=== PATIENT | female | born 1985 | race Caucasian/White ===

== ENCOUNTER 2021-10-20 15:26 | Emergency (ER) | payer OTHER, SELFPAY ==
[2021-10-20 15:39] VITALS: BP 123/71; PULSE 76; RESP 18; TEMP 37.1; O2SAT 100
--- NOTE | 2021-10-20 15:59 | ED.FEMALEGU ---
HPI - Female Genitourinary General Chief complaint: Urogenital-Female Stated complaint: Uti complaint Source: patient and RN notes reviewed Limitations: no limitations History of Present Illness HPI Narrative: The patient, previously mostly healthy, presents with 2-day history of fever 100[forehead], associated with definite chills and then visible blanquita urinary discoloration. This is worse than prior UTI; No frequency/urgency/dysuria, vomiting/diarrhea, low back pain- so no colic,no abdominal pain, vaginal discharge. Symptoms are mild most noticeable with micturition which is cloudy brown discolored. [id number] urine is remarkable for nitrate positive , 3+ heme, leukocyte negative; patient advised to go to hospital if not improved or to follow-up without fail with PMD for hematuria changes Related Data Home Medications Medication Instructions Recorded Confirmed levonorgestrel [Mirena] 1 insert INTRAUTERINE ONCE 10/20/21 10/20/21 Allergies Allergy/AdvReac Type Severity Reaction Status Date / Time No Known Allergies Allergy Unverified 10/20/21 15:45 Review of Systems Review of Systems: General/Constitutional: No weight loss,fever Eyes: N0: Redness,discharge Ears/Nose/Throat: No: Epistaxis,ear discharge Respiratory: Denies: Hemoptysis Gastrointestinal: No Vomiting, Bleeding-rectal Skin: No Lumps, eruption Neurologic: No Focal Weakness,Sz Hematologic: Denies: Petechiae/Purpura Psychiatric: No: Suicida ideationl All Other Systems: Reviewed and Negative PMFSH Comments At time of signature, agree with nursing past medical, surgical, social and family history. There is no relevant family history pertinent to the presenting complaint Exam Narrative: General Appearance: Well appearing,, Conjunctiva clear Ears: External ear normal Nose: Normal nose Mouth/Throat: Normal appearing, Normal lips, Supple Respiratory: Airway patent, No respiratory distress Cardiovascular: RRR Abdomen: Soft, Non-tender, No massess, no CVAT Musculoskeletal: Full ROM Skin: Warm, Dry Neurological: A&O x3, CN II-X intact Psychiatric: Normal mood, Normal affect Course Vital Signs Vital signs: Vital Signs Temperature 98.7 F 10/20/21 15:39 Pulse Rate 76 10/20/21 15:39 Respiratory Rate 18 10/20/21 15:39 Blood Pressure 123/71 10/20/21 15:39 Pulse Oximetry 100 10/20/21 15:39 Temperature 98.7 F 10/20/21 15:39 Pulse Rate 76 10/20/21 15:39 Respiratory Rate 18 10/20/21 15:39 Blood Pressure 123/71 10/20/21 15:39 Pulse Oximetry 100 10/20/21 15:39 MDM - Female Genitourinary Lab Data Labs: G Bedside Result Negative Reference Range: Negative Urine Glucose Negative Reference Range: Negative Urine Bilirubin Negative Reference Range: Negative Urine Ketone Negative Reference Range: Negative Urine Specific [place] 1.025 Reference Range:1.001-1.035 Urine Blood 3+ Reference Range: Negative * * Urine pH 5.5 Reference Range: 5.0-9.0 Urine Protein 2+ Reference Range: Negative Urine Urobilinogen 0.2 Reference Range: 0.2-1.0 Urine Nitrate Positive Reference Range: Negative Urine Leukocyte Negative
== END 2021-10-20 16:06 | disposition home or self-care (01) ==
PROVIDERS: Emergency Provider Emergency Medicine; PCP Family Medicine
DX: R31.9 Hematuria, unspecified (principal)
CPT/HCPCS: 81003; 81025; 87086; 99213; G0463

== ENCOUNTER → 2021-10-28 14:19 | Outpatient (CLI) | payer OTHER, SELFPAY ==
--- NOTE | ~2021-10-28 | US_ITS ---
EXAMINATION: US renal BI DATE: 10/28/2021 14:33 INDICATION: Microscopic hematuria. TECHNIQUE: Multiple ultrasound grayscale images of the kidneys were obtained. COMPARISON: None. FINDINGS: The right kidney measures 11.7 x 5.4 x 5.6 cm. The left kidney measures 10.4 x 4.7 x 5.4 cm. The kidn eys demonstrate normal parenchymal echogenicity. There is no hydronephrosis. The bladder is normal. IMPRESSION: 1. Normal kidneys. No hydronephrosis. Reviewed, dictated and finalized at location A. EMS DEVELOPMENT CONSULTANT
== END ==
PROVIDERS: PCP Family Medicine; Visit Provider Family Medicine
DX: R31.29 Other microscopic hematuria (principal)
CPT/HCPCS: 76775

== ENCOUNTER 2022-04-27 06:52 | Emergency (ER) | payer OTHER, SELFPAY ==
--- NOTE | ~2022-04-27 | CT_ITS ---
EXAMINATION: CT abdomen pelvis wo con DATE: 04/27/2022 07:39 INDICATION: Left flank pain. Nausea and vomiting. Low back pain. TECHNIQUE: Computed tomography (CT) of the abdomen and pelvis was performed without intravenous contr ast. Automated exposure control and iterative reconstruction technique were employed. The dose-length product was 492.12 mGy-cm. COMPARISON: None FINDINGS: Lung bases are clear. Heart size is normal. No pericardial or pleural effusion. Rim calcified gallsto ne at the neck of the gallbladder which is filled with dependently layering high attenuation sludge. No wall thickening or pericholecystic contour change to suggest acute cholecystitis. Liver, spleen, p ancreas, bilateral adrenal glands and right kidney are normal. 5 mm nonobstructing stone in upper hayder e calyx of the left kidney. 11 x 5 x 6 mm obstructing stone at the left ureteropelvic junction with m ild left hydronephrosis and mild stranding surrounding the ureter pelvic junction. Bowels including t he appendix are normal. T-shaped IUD in expected position within the retroverted uterus. Decompressed bladder and bilateral adnexa are unremarkable. No free intraperitoneal gas or fluid. No pathological ly enlarged abdominal or pelvic lymphadenopathy. Mild lumbar levocurvature. IMPRESSION: 1. Left nephrolithiasis with obstructing 11 x 5 x 6 mm stone at the left ureteral pelvic junction wit h mild left hydronephrosis. 2. Cholelithiasis. 3. IUD in expected position. Reviewed, dictated and finalized at location A. IMPRESSION: 1. Left nephrolithiasis with obstructing 11 x 5 x 6 mm stone at the left ureter al pelvic junction with mild left hydronephrosis. 2. Cholelithiasis. 3. IUD in expected position.
--- NOTE | ~2022-04-27 | XR_ITS ---
EXAMINATION: XR abdomen/kub 1V DATE: 04/27/2022 07:47 INDICATION: Left flank pain. TECHNIQUE: A supine view of the abdomen on 2 radiographs was obtained. COMPARISON: CT abdomen and pelvis 04/27/2022 FINDINGS: There are no dilated loops of bowel. There is an intrauterine device in expected position. There is a 5 mm stone in left kidney upper pole. There is a 6 x 11 mm stone in proximal left ureter. IMPRESSION: 1. 6 x 11 mm stone in proximal left ureter. 2. 5 mm stone in left kidney upper pole. Reviewed, dictated and finalized at location B.
[2022-04-27 06:56] VITALS: BP 128/64; PULSE 62; RESP 16; TEMP 36.7; O2SAT 100
[2022-04-27 07:10] VITALS: BP 128/64; PULSE 59; RESP 17; O2SAT 100
[2022-04-27 07:28] LABS: Basophils Percent Auto 0.3 % (0.2-1.2); Eosinophils Absolute Auto 0.1 K/mm3 (0-0.3); Eosinophils Percent Auto 1.3 % (0-4.4); Hematocrit 41.6 % (37.0-47.0); Hemoglobin 14.3 g/dL (12.0-15.0); Immature Granulocyte Absolute 0.02 K/mm3 (0.00-0.031); Immature Granulocyte Percent A 0.2 % (0-0.5); Lymphocytes Absolute Auto 1.91 K/mm3 (0.9-3.2); Lymphocytes Percent Auto 20.7 % (18.3-44.2); Mean Corpuscular HGB Conc 34.4 g/dl (32-36); Mean Corpuscular Hemoglobin 30.3 pg (26-34); Mean Corpuscular Volume 88.1 fl (80-100); Mean Platelet Volume 11.6 fl (7.4-10.4); Monocytes Absolute Auto 0.5 K/mm3 (0.1-0.6); Monocytes Percent Auto 5.7 % (2.6-8.5); Neutrophils Absolute Auto 6.6 K/mm3 (1.3-6.7); Neutrophils Percent Auto 71.8 % (45.5-73.1); Platelet Count Result 244 k/mm3 (150-375); Red Blood Count 4.72 M/mm3 (4.2-5.4); Red Cell Distribution Width 12.1 % (11.5-14.5); White Blood Count 9.2 K/mm3 (4.5-10.0)
[2022-04-27 07:29] LABS: Add Urine Microscopic? YES; Appearance Urine Cloudy (Clear); Bilirubin Urine 1+ (Negative); Blood Urine 3+ (Negative); Glucose Urine UA Negative (Negative); Ketones Urine Negative (Negative); Leukocyte Esterase Ur Negative LEU/UL (Negative); Nitrate Urine Negative (Negative); Protein Urine 2+ mg/dL (Negative); Specific Grav Ur >= 1.030 (1.001-1.035); Urobilinogen Urine 0.2 mg/dL (<2.0); pH Urine 5.5 (5.0-9.0)
[2022-04-27 07:33] LABS: Color Urine Light Red (Yellow)
[2022-04-27 07:35] LABS: Bacteria Urine Trace /hpf; Mucus Urine Few /lpf; RBC Urine >75 /hpf (0-2); Squamous Epithelial Cell Urine Few /hpf (Few)
--- NOTE | 2022-04-27 07:37 | ED.BACK ---
HPI - Back Pain/Injury General Chief Complaint: Back Pain/Injury Stated Complaint: back pain Time Seen by Provider: 04/27/22 06:59 Source: patient, family, RN notes reviewed and old records reviewed Mode of arrival: ambulatory Limitations: no limitations History of Present Illness HPI Narrative: This is a 37 year old female who presents for evaluation left lower back pain. She woke this morning with sudden onset left flank pain. She states this pain is intermittent, and her pain has currently resolved. She is having associated nausea and vomiting. Her pain does not radiate. She denies fever or chills . She states she has had back pain for 6 month but this pain is different. She denies history of kidney stones or ovarian cyst. She does noted that when she went to restroom, she saw bright red blood when she wipes. She denies seeing blood in toilet. Related Data Home Medications Medication Instructions Recorded Confirmed levonorgestrel 20 mcg/24 hours (7 1 insert intrauterine ONCE 10/20/21 10/20/21 yrs) 52 mg intrauterine device (Mirena) Allergies Allergy/AdvReac Type Severity Reaction Status Date / Time No Known Allergies Allergy Verified 04/27/22 07:06 Review of Systems Review of Systems: All systems reviewed & are unremarkable except as noted in HPI and below Constitutional: Constitutional: Denies chills, Denies fatigue and Denies fever(s) Cardiovascular: Cardiovascular: Denies chest pain and Denies rapid heart rate Respiratory: Respiratory: Denies chest congestion, Denies cough and Denies dyspnea Gastrointestinal: Gastrointestinal: Denies abdominal pain, Denies bloating, Denies constipation, Reports nausea and Reports vomiting Genitourinary: Genitourinary: Reports hematuria, Denies dysuria and Reports flank pain Musculoskeletal: Musculoskeletal: Reports back pain and Denies myalgias Neurologic: Denies focal weakness and Denies numbness PMFSH Past Medical History Medical History Patient denies medical problems Surgical History Surgical History H/O dilation and curettage Social History Social History Smoking status: Never smoker Exam Const: General: alert and diaphoretic Orientation/consciousness: patient oriented x3 Limitations: no limitations HENMT: Head: normal to inspection Face and sinus: normal facial exam Eyes: EOM: EOMs intact bilaterally Chest: Chest palpation & inspection: normal inspection of the chest Resp: Effort & Inspection: normal respiratory effort Auscultation: clear to auscultation bilaterally and breath sounds present Cardio: Rate: regular rate Rhythm: regular rhythm Heart sounds: no murmurs GI: GI Palp: Yes Soft to palpation, No Tenderness to palpation present (GI), No Guarding due to palpation present (GI) and No Rigid due to palpation Auscultation: normal bowel sounds : General: Yes CVA tenderness on the left Back/Spine/Pelvis: Back: CVA tenderness Skin: General skin exam: normal color Rashes: no rashes Wounds: no wounds Neuro: General: patient oriented x3, moves all extremities and CN's II-XI intact bilaterally Cranial nerves: Yes Nystagmus not present Speech: normal speech Extrem: General: normal to inspection Psych: Mental Status: mental status grossly normal Affect: normal affect Course Reevaluation(s) Reevaluation #1: Janeen with urology spoke with patient about options. PAtient wants be discharged home and get set up for outpatient lithotripsy. Date: 04/27/22 Time: 10:00 Vital Signs Vital signs: Vital Signs Temperature 98.0 F 04/27/22 06:56 Pulse Rate 62 04/27/22 06:56 Respiratory Rate 16 04/27/22 06:56 Blood Pressure 128/64 04/27/22 06:56 Pulse Oximetry 100 04/27/22 06:56 Oxygen Delivery Room Air 04/27/22 06:56
[2022-04-27 07:38] LABS: Alanine Aminotransferase 12 U/L (6-35); Albumin Level 4.5 g/dL (3.5-5.1); Alkaline Phosphatase 79 U/L (38-126); Anion Gap 8 mmol/L (8-16); Aspartate Amino Transferase 17 U/L (14-36); Bilirubin,Total 0.4 mg/dL (0.2-1.3); Blood Urea Nitrogen 10 mg/dL (7-17); Calcium 8.5 mg/dL (8.4-10.2); Carbon Dioxide 23 mmol/L (22-30); Chloride 108 mmol/L (98-107); Estimated CRCL calculation 93 ml/min; Estimated Glomerular Filt Rate > 60; Glucose 103 mg/dL (65-110); Lipase 74 U/L (23-300); Potassium 3.8 mmol/L (3.4-5.0); Sodium 139 mmol/L (137-145)
[2022-04-27] MEDS: SODIUM CHLORIDE 0.9% IV 1,000 ML 999 ML IV CONT (07:49)
[2022-04-27] MEDS: HYDROmorphone HCL INJ (*CRX) 1 MG/ML SYR IV PUSH (08:06)
[2022-04-27] MEDS: ONDANSETRON INJ 4 MG/2 ML VIAL IV PUSH (08:06)
[2022-04-27 08:08] VITALS: BP 113/62; PULSE 74; RESP 15; O2SAT 100
--- NOTE | 2022-04-27 09:53 | PC.NURSE ---
Urology at bedside to discuss options/POC.
[2022-04-27 10:16] VITALS: RESP 16
--- NOTE | 2022-04-27 11:44 | WPDURCON ---
Assessment and Plan Assessment and plan (1) Calculus of proximal left ureter: Code(s): N20.1 - Calculus of ureter Status: Acute Assessment and Plan: We discussed placing a stent, however since her pain is well controlled, we discussed doing a LEFT ESWL at our surgery center this week or [facility]. She chose to do the ESWL and declined a stent today since her pain is improved on pain meds. She will be discharged home on pain meds and anti-emetics then scheduled this week for an ESWL. She knows to avoid anti coagulants and NSAID's until her surgery date. (2) Left renal stone: Code(s): N20.0 - Calculus of kidney Status: Acute Urology Consult Note HPI Date Seen: 04/27/22 Time Seen: 09:30 Primary Care Provider: Satya Cortes MD Consult Narrative Reason for consult: Left Renal Stone Narrative: Asha Terry is a 37 year old female who presented to the ER today for worsening left flank pain that began months ago and has been intermittent. She states today she vomitied, but prior to this episode, she denies hematuria, dysuria, frequency or urgency to urinate or pelvic pain. She also denies a history of kidney stones or chronic UTI's. She is afebrile, has a WBC of 9.3 and creatinine of 0.80, Urine culture is pending, but she is relatively asymptomatic of a UTI today. She had some flank pain in 11/04 and her PCP sent her for a HANS which didn't show any stones. Her CT scan in the ER shows a left stone measuring [id number] in the UPJ, and an additional left renal stone measuring 5mm, both are visible on KUB. Her pain is now controlled with pain medications. Review of Systems Respiratory: Respiratory: Reports no additional respiratory complaints Gastrointestinal: Gastrointestinal: Denies abdominal pain, Denies nausea and Reports vomiting Genitourinary: Genitourinary: Denies hematuria, Denies nocturia, Denies dysuria, Denies pelvic pain, Reports flank pain, Denies urinary incontinence, Denies urinary hesitancy and Denies urinary urgency PMF Past Medical History Medical History Patient denies medical problems Surgical History Surgical History H/O dilation and curettage Social History Social History Smoking status: Never smoker Meds Home Medications and Allergies Home Medications Medication Instructions Recorded Confirmed Type cefdinir 300 mg capsule 300 mg PO Q12H #20 caps 10/20/21 Rx levonorgestrel 20 mcg/24 hours (7 1 insert intrauterine ONCE 10/20/21 10/20/21 History yrs) 52 mg intrauterine device (Mirena) ondansetron 4 mg disintegrating 4 mg PO Q6H PRN nausea and 04/27/22 Rx tablet vomiting #10 tabs oxycodone-acetaminophen 5 mg-325 1 tablet PO Q6H PRN pain #10 tabs 04/27/22 Rx mg tablet (Percocet) Allergies Allergy/AdvReac Type Severity Reaction Status Date / Time No Known Allergies Allergy Verified 04/27/22 07:06 Vital Signs Vital Signs - 24 hr 04/27/22 06:56 04/27/22 07:10 04/27/22 08:08 Temperature 98.0 F Pulse Rate 62 59 L 74 Respiratory Rate 16 17 15 Blood Pressure 128/64 128/64 113/62 Pulse Oximetry 100 100 100 Oxygen Delivery Room Air 04/27/22 10:16 Temperature Pulse Rate Respiratory Rate 16 Blood Pressure Pulse Oximetry Oxygen Delivery Exam Resp: Effort & Inspection: normal respiratory effort Cardio: Rate: regular rate GI: GI Palp: Yes Soft to palpation and No Tenderness to palpation present (GI) : Other: Left Flank pain Results Labs CBC & Chem 7: 04/27/22 07:22 04/27/22 07:22 Labs: Short CBC 04/27/22 Range/Units 07:22 WBC 9.2 (4.5-10.0) K/mm3 Hgb 14.3 (12.0-15.0) g/dL Hct 41.6 (37.0-47.0) % Plt Count 244 (150-375) k/mm3 [facility] 04/27/22 07:22 Sodium 139 Potassium 3
== END 2022-04-27 10:17 | disposition home or self-care (01) ==
PROVIDERS: Emergency Provider General Practice; PCP Family Medicine
DX: N20.1 Calculus of ureter (principal)
CPT/HCPCS: 36415; 74018; 74176; 80053; 81001; 81025; 83690; 85025; 87086; 87088; 96361; 96374; 96375; 99284; J1170; J2405; J7030

== ENCOUNTER 2022-04-29 00:31 | Observation (INO) | payer OTHER, SELFPAY ==
[2022-04-29] VITALS (35 sets, daily range): BP systolic 87–120; BP diastolic 47–81; PULSE 45–79; RESP 12–27; TEMP 36.7–37.2; O2SAT 94–100; BMI 29.3
--- NOTE | ~2022-04-29 | XR_ITS ---
XR abdomen/kub 1V DATE: 04/29/2022 01:34 INDICATION: Kidney stone TECHNIQUE: Supine AP views on 04/29/2022 at 0129 hours COMPARISON: 04/29/2022 CT abdomen pelvis 04/27/2022 CT abdomen pelvis FINDINGS: Approximately 4.7 x 12 mm collection of calcified calculi overlying the proximal left urete r at the L2-3 area. r approximate 5 mm calcification overlying the upper pole of the left kidney. An IUD is noted in the pelvic area in expected location. No evidence of bowel obstruction or intraperitoneal free air. The lung bases appear clear. Heart size appears normal. Included skeletal structures are unremarkable. IMPRESSION: Proximal left ureteral Steinstrasse Upper pole left renal calcified calculus Reviewed, dictated and finalized at [facility]. Reviewed, dictated and finalized at location A.
--- NOTE | ~2022-04-29 | CT_ITS ---
EXAMINATION: CT abdomen pelvis wo con DATE: 04/29/2022 02:03 INDICATION: Left flank pain TECHNIQUE: Computed tomography (CT) of the abdomen and pelvis was performed without intravenous contr ast. Automated exposure control and iterative reconstruction technique were employed. Exam dose: 518 .87 mGy-cm total exam DLP. COMPARISON: 04/29/2022 KUB 04/27/2022 CT abdomen pelvis FINDINGS: The lung bases are clear. Normal heart size. No pericardial or pleural effusion. Large peripherally calcified stone is noted in the proximal body of the gallbladder. No bile duct or pancreatic duct dilatation. No hepatic, pancreatic, splenic, and adrenal or renal space-occupying mass lesion is evident on this limited noncontrast examination. There is left nephromegaly and moderately severe left hydronephrosis secondary to multiple stones in the proximal left ureter calculi measuring up to 12 mm vertical dimension, 5.2 mm maximal transverse dimension. There is left perinephric stranding. 5.8 mm upper pole nonobstructing left renal calculus. No right urinary tract calculus or hydronephros is. Normal caliber of the abdominal aorta. No intraperitoneal or retroperitoneal or pelvic mass lesion or adenopathy or ascites. Retroverted uterus with IUD in expected position. No evidence of appendicitis. No bowel obstruction, bowel wall thickening, pneumatosis or intraperiton eal free air. Included skeletal structures are unremarkable. IMPRESSION: Steinstrasse the proximal left ureter with moderately severe left hydroureteronephrosis 5.8 mm upper pole nonobstructing left renal calculus Cholelithiasis Reviewed, dictated and finalized at [facility]. Reviewed, dictated and finalized at location A.
--- NOTE | ~2022-04-29 | XR_ITS ---
EXAMINATION: XR retrograde pyelo w/stent LT DATE: 04/29/2022 15:35 CDT INDICATION: LEFT RETROGRADE . TECHNIQUE: 75 fluoroscopic images of the pelvis and left abdomen were obtained during left retrograde pyelography with stent placement performed by the surgeon. I was not present in the operating room. Fluoroscopy exposure time was 21 seconds. Cumulative dose was 0.36833 mGy2. COMPARISON: CT and xray abdomen 04/29/2022 FINDINGS: IUD, in good position. Redemonstration of the proximal left ureteral stone/stones and nonobstructive left upper pole calculus. Progressive contrast filling of the left collecting system with moderate di lation. Poststenting images demonstrate the proximal aspect of the ureteral stent in the left renal p angelica, likely with the coil viewed in profile and the distal coil over the expected position of the b ladder. IMPRESSION: Fluoroscopic documentation of left retrograde pyelography with stent placement. Reviewed, dictated and finalized at location K.
[2022-04-29] MEDS: SODIUM CHLORIDE 0.9% IV 1,000 ML 999 ML IV CONT (01:20)
[2022-04-29] MEDS: ONDANSETRON INJ 4 MG/2 ML VIAL IV PUSH ×2 (01:20→17:28)
[2022-04-29] MEDS: KETOROLAC 30 MG/ML VIAL (*BKC) IV PUSH ×2 (01:20→17:28)
[2022-04-29 01:27] LABS: Basophils Percent Auto 0.1 % (0.2-1.2); Hematocrit 38.5 % (37.0-47.0); Immature Granulocyte Absolute 0.04 K/mm3 (0.00-0.031); Immature Granulocyte Percent A 0.2 % (0-0.5); Lymphocytes Absolute Auto 0.63 K/mm3 (0.9-3.2); Lymphocytes Percent Auto 3.8 % (18.3-44.2); Mean Corpuscular HGB Conc 33.8 g/dl (32-36); Mean Corpuscular Hemoglobin 30.4 pg (26-34); Mean Platelet Volume 11.7 fl (7.4-10.4); Monocytes Absolute Auto 0.6 K/mm3 (0.1-0.6); Monocytes Percent Auto 3.3 % (2.6-8.5); Neutrophils Absolute Auto 15.5 K/mm3 (1.3-6.7); Neutrophils Percent Auto 92.6 % (45.5-73.1); Platelet Count Result 263 k/mm3 (150-375); Red Blood Count 4.28 M/mm3 (4.2-5.4); Red Cell Distribution Width 12.4 % (11.5-14.5); White Blood Count 16.7 K/mm3 (4.5-10.0)
--- NOTE | 2022-04-29 01:29 | ED.GENADULT ---
HPI - General Adult General Chief complaint: Abdominal Pain Stated complaint: left flank pain Time Seen by Provider: 04/29/22 00:54 History of Present Illness HPI narrative: Patient is a 37-year-old female who presents the ER with lower abdominal pain and flank pain. Patient underwent lithotripsy today. She does not believe she had stent placement. She had an 11 mm stone on left side. She was treated by Dr. Gonzalez. Denies fevers or chills or sweats. She is also having some nausea without vomiting. Home medications not working. No dysuria. Related Data Home Medications Medication Instructions Recorded Confirmed levonorgestrel 20 mcg/24 hours (7 1 insert intrauterine ONCE 10/20/21 10/20/21 yrs) 52 mg intrauterine device (Mirena) Allergies Allergy/AdvReac Type Severity Reaction Status Date / Time No Known Allergies Allergy Verified 04/29/22 00:34 Review of Systems Review of Systems: All systems reviewed & are unremarkable except as noted in HPI and below Constitutional: Constitutional: Denies chills, Denies fatigue and Denies fever(s) ENT: Denies nasal congestion and Denies sore throat Cardiovascular: Cardiovascular: Denies chest pain, Denies radiating jaw, neck or arm pain and Denies slow heart rate Respiratory: Respiratory: Denies cough Gastrointestinal: Gastrointestinal: Reports abdominal pain, Reports nausea and Reports vomiting Genitourinary: Genitourinary: Denies hematuria, Denies nocturia, Denies dysuria and Reports flank pain PMFSH Past Medical History Medical History (Updated 04/29/22 @ 04:15 by Milton Diallo MD) Kidney stones Surgical History Surgical History (Updated 04/29/22 @ 01:31 by Milton Diallo MD) H/O dilation and curettage History of lithotripsy Social History Social History Smoking status: Never smoker Exam Narrative: GENERAL: Uncomfortable-appearing, well-nourished, and in mild distress. HEAD: Normocephalic, atraumatic. ENT: Mucous membranes moist. CHEST: Clear to auscultation. No respiratory distress. HEART: Regular rate and rhythm. Normal peripheral pulses. ABDOMEN: Soft, nontender, nondistended. Bilateral CVA tenderness. EXTREMITIES: Normal range of motion. No edema. SKIN: Warm, dry, no rash. NEURO: Alert and oriented x3. PSYCH: Normal mood and affect. Course Course Emergency Course: Patient informed of results. Discussed case with urology. Admit to their service. Keep NPO. Fluids and pain medication ordered. Patient will require stent. Patient where treatment plan. Patient without right upper quadrant pain or any additional concerns of cholecystitis. Vital Signs Vital signs: Vital Signs Temperature 98.0 F 04/29/22 00:32 Pulse Rate 49 L 04/29/22 00:32 Respiratory Rate 18 04/29/22 00:32 Blood Pressure 114/59 L 04/29/22 00:32 Pulse Oximetry 99 04/29/22 00:32 Oxygen Delivery Room Air 04/29/22 00:32 Temperature 98.0 F 04/29/22 00:32 Pulse Rate 70 04/29/22 04:01 Respiratory Rate 17 04/29/22 04:01 Blood Pressure 108/57 L 04/29/22 04:01 Pulse Oximetry 98 04/29/22 04:01 Oxygen Delivery Room Air 04/29/22 00:32 Medical Decision Making Vital Signs Vital Signs: Vital Signs Temperature 98.0 F 04/29/22 00:32 Pulse Rate 49 L 04/29/22 00:32 Respiratory Rate 18 04/29/22 00:32 Blood Pressure 114/59 L 04/29/22 00:32 Pulse Oximetry 99 04/29/22 00:32 Oxygen Delivery Room Air 04/29/22 00:32 Temperature 98.0 F 04/29/22 00:32 Pulse Rate 70 04/29/22 04:01 Respiratory Rate 17 04/29/22 04:01 Blood Pressure 108/57 L 04/29/22 04:01 Pulse Oximetry 98 04/29/22 04:01 Oxygen Delivery Room Air 04/29/22 00:32 Lab Data Result diagrams: 04/29/22 01:23 04/29/22 01:23 Labs: Lab Results 04/29/22 04/29/22 04/29/22 Range/Units 01:23 01:23 02:37 WBC 16.7 H (4.5-10.0) K/
[2022-04-29 01:37] LABS: Anion Gap 9 mmol/L (8-16); Blood Urea Nitrogen 18 mg/dL (7-17); Calcium 8.5 mg/dL (8.4-10.2); Carbon Dioxide 25 mmol/L (22-30); Chloride 105 mmol/L (98-107); Estimated CRCL calculation 84 ml/min; Estimated Glomerular Filt Rate > 60; Glucose 134 mg/dL (65-110); Potassium 3.9 mmol/L (3.4-5.0); Sodium 139 mmol/L (137-145)
[2022-04-29 02:42] LABS: Appearance Urine Clear (Clear); Bilirubin Urine Negative (Negative); Blood Urine 3+ (Negative); Color Urine Yellow (Yellow); Glucose Urine UA Negative (Negative); Ketones Urine 4+ mg/dL (Negative); Leukocyte Esterase Ur Negative LEU/UL (Negative); Nitrate Urine Negative (Negative); Protein Urine 1+ mg/dL (Negative); Specific Grav Ur >= 1.030 (1.001-1.035); Urobilinogen Urine 0.2 mg/dL (<2.0)
[2022-04-29 02:46] LABS: Bacteria Urine Trace /hpf; Mucus Urine Rare /lpf; RBC Urine >75 /hpf (0-2); Squamous Epithelial Cell Urine Rare /hpf (Few)
[2022-04-29 02:47] LABS: Add Urine Microscopic? YES
[2022-04-29] MEDS: MORPHINE SULFATE (*CRX) 4 MG/ML INJ IV PUSH ×4 (03:57→20:25)
--- NOTE | 2022-04-29 05:17 | ADMGEN ---
This patient, Asha Terry, was admitted to [facility] Room 311-01. Patient/family oriented to hospital policies and general routines including ID bracelet, bed and alarms, visiting hours, pain management, procedures, bathroom and other care routines, personal items, smoking policy, room service/diet, and visiting hours. Information on how to activate the Rapid Response Team has been discussed. Patient/Family are encouraged to report perceived risks to care and to ask questions if they do not understand what they are told or what they should do.
[2022-04-29] MEDS: SODIUM CHLORIDE 0.9% IV 1,000 ML 125 ML IV CONT ×3 (05:24→17:29)
[2022-04-29 10:58] LABS: Pregnancy On Board Control Positive; Urine Pregnancy Test Negative
--- NOTE | 2022-04-29 12:19 | WPDURCON ---
Assessment and Plan Assessment and plan (1) Left renal stone: Code(s): N20.0 - Calculus of kidney Status: Acute (2) Left ureteral stone: Code(s): N20.1 - Calculus of ureter Status: Acute Assessment and Plan: D/t Continued severe pain not well controlled by pain medications and multiple stone fragements in the ureter, the patient will need to have a cystoscopy, left stent placement, left retrograde pyelogram today with Dr. Long. Obtain Consent. Keep NPO. She will likely need a Cystoscopy, left ureteroscopy with stone extraction and stent exchange, left retrograde pyelogram, possible holmium laser, however she will f/u in our office next Wednesday to repeat a urine culture and KUB prior to scheduling her surgery. Urology Consult Note HPI Date Seen: 04/29/22 Time Seen: 09:00 Requesting Physician: Laila Long MD Primary Care Provider: Satya Cortes MD Consult Narrative Narrative: Asha Terry is a 37 year old female who presents to the ER with worsening pain s/p a left ESWL yesterday with Dr. Gonzalez at our surgery center. She is c/o severe left flank pain that is worse following her lithotripsy yesterday. She was initially seen in the ER on Wednesday for acute onset of left flank pain and nausea where she was diagnosed with an 11mm left UPJ stone. She had her pain controlled by oral pain medications and was discharged home to f/u the next day for a lithotripsy. Her urine culture from 04/27/22 was negative, she is afebrile, WBC is 16.7 and creatinine 0.90. Her pain is still not well controlled at this time. Her KUB today shows left steinstrasse and a good postoperative result from her 11mm left UPJ stone that has broken up nicely s/p surgery. Review of Systems Cardiovascular: Cardiovascular: Denies chest pain Respiratory: Respiratory: Reports no additional respiratory complaints Genitourinary: Genitourinary: Denies hematuria, Denies nocturia, Denies dysuria, Denies pelvic pain and Reports flank pain PMFSH Past Medical History Medical History Kidney stones Surgical History Surgical History H/O dilation and curettage History of lithotripsy Social History Social History Smoking status: Never smoker Additional smoking assessment comments: no smoking for 2 yrs Spiritual care concerns: Yes Meds Home Medications and Allergies Home Medications Medication Instructions Recorded Confirmed Type No Home Medications 04/29/22 04/29/22 History Allergies Allergy/AdvReac Type Severity Reaction Status Date / Time No Known Allergies Allergy Verified 04/29/22 00:34 Vital Signs Vital Signs - 24 hr 04/29/22 00:32 04/29/22 01:01 04/29/22 01:02 Temperature 98.0 F Pulse Rate 49 L 51 L 50 L Respiratory Rate 18 19 12 Blood Pressure 114/59 L 120/66 Pulse Oximetry 99 99 99 Oxygen Delivery Room Air 04/29/22 01:15 04/29/22 01:16 04/29/22 01:34 Temperature Pulse Rate 60 49 L 79 Respiratory Rate 18 14 27 H Blood Pressure 118/71 Pulse Oximetry 98 100 99 Oxygen Delivery 04/29/22 01:45 04/29/22 02:03 04/29/22 02:15 Temperature Pulse Rate 45 L 62 50 L Respiratory Rate 17 21 H 21 H Blood Pressure Pulse Oximetry 99 100 98 Oxygen Delivery 04/29/22 02:30 04/29/22 02:38 04/29/22 02:45 Temperature Pulse Rate 53 L 67 47 L Respiratory Rate 22 H 14 14 Blood Pressure 109/66 Pulse Oximetry 98 99 99 Oxygen Delivery 04/29/22 02:46 04/29/22 03:00 04/29/22 03:01 Temperature Pulse Rate 51 L 51 L 59 L Respiratory Rate 14 17 14 Blood Pressure 107/60 114/60 Pulse Oximetry 98 98 98 Oxygen Delivery 04/29/22 03:19 04/29/22 03:30 04/29/22 03:45 Temperature Pulse Rate 70 47 L 69 Respiratory Rate 21 H 19 18 Blood Pressure Pulse Oximetry 98 99 99
--- NOTE | 2022-04-29 12:43 | WPDHPUPDATE1 ---
History and Physical Update Update Date/Time: 04/29/22 12:43 History and Physical has been reviewed, including an updated exam of the patient. There are NO changes in the patient's condition. Risks, benefits, and alternatives have been discussed and questions answered. Patient agrees to proceed with procedure.
--- NOTE | 2022-04-29 13:35 | WPDANESEPPF ---
Anes - Initial Pre Proc Eval Procedure: Operation Date: 04/29/22 14:00 Proposed Procedures p Cystoscopy, Left Stent Placement - Laila Long MD Date/Time: 04/29/22 13:35 Surgeon: Laila Long MD Pre Op Diagnosis: ureterolithiasis Patient Data Age: 37 Gender: F Height: 1.7 m Weight: 85.1 kg Last Vital Signs Temp 37.1 C 04/29/22 13:13 Pulse 57 L 04/29/22 13:13 Resp 16 04/29/22 13:13 BP 109/60 04/29/22 13:13 Pulse Ox 99 04/29/22 13:13 O2 Del Method Room Air 04/29/22 13:13 Allergies Allergy/AdvReac Type Severity Reaction Status Date / Time No Known Allergies Allergy Verified 04/29/22 13:08 Home Medications Medication Instructions Recorded Confirmed Type No Home Medications 04/29/22 04/29/22 History Laboratory Tests 04/29/22 04/29/22 04/29/22 01:23 01:23 02:37 WBC 16.7 K/mm3 H K/mm3 (4.5-10.0) RBC 4.28 M/mm3 M/mm3 (4.2-5.4) Hgb 13.0 g/dL g/dL (12.0-15.0) Hct 38.5 % % (37.0-47.0) MCV 90.0 fl fl (80-100) MCH 30.4 pg pg (26-34) MCHC 33.8 g/dl g/dl (32-36) RDW 12.4 % % (11.5-14.5) Plt Count 263 k/mm3 k/mm3 (150-375) MPV 11.7 fl H fl (7.4-10.4) Immature Gran % (Auto) 0.2 % % (0-0.5) Neut % (Auto) 92.6 % H % (45.5-73.1) Lymph % (Auto) 3.8 % L % (18.3-44.2) [place] % (Auto) 3.3 % % (2.6-8.5) Eos % (Auto) 0.0 % % (0-4.4) Baso % (Auto) 0.1 % L % (0.2-1.2) Lymph # (Auto) 0.63 K/mm3 L K/mm3 (0.9-3.2) [place] # (Auto) 0.6 K/mm3 K/mm3 (0.1-0.6) Eos # (Auto) 0.0 K/mm3 K/mm3 (0-0.3) Baso # (Auto) 0.0 K/mm3 K/mm3 (0.0-0.1) Abs Immat Gran (auto) 0.04 K/mm3 H K/mm3 (0.00-0.031) Absolute Neuts (auto) 15.5 K/mm3 H K/mm3 (1.3-6.7) Absolute Nucleated RBC 0.0 K/mm3 K/mm3 (0.0-0.012) Nucleated RBC % 0.0 % % (0.0-0.2) Sodium 139 mmol/L mmol/L (137-145) Potassium 3.9 mmol/L mmol/L (3.4-5.0) Chloride 105 mmol/L mmol/L (98-107) Carbon Dioxide 25 mmol/L mmol/L (22-30) Anion Gap 9 mmol/L mmol/L (8-16) BUN 18 mg/dL H mg/dL (7-17) Creatinine 0.90 mg/dL mg/dL (0.7-1.0) Estim Creat Clear Calc 84 ml/min ml/min Estimated GFR > 60 (59 - ) Glucose 134 mg/dL H mg/dL (65-110) Calcium 8.5 mg/dL mg/dL (8.4-10.2) Urine Color Yellow (Yellow) Urine Appearance Clear (Clear) Urine pH 6.0 (5.0-9.0) Ur Specific [place] >= 1.030 (1.001-1.035) Urine Protein 1+ mg/dL H mg/dL (Negative) Urine Glucose (UA) Negative mg/dL mg/dL (Negative) Urine Ketones 4+ mg/dL H mg/dL (Negative) Ur Blood (Man) 3+ H (Negative) Urine Nitrate Negative (Negative) Urine Bilirubin Negative (Negative) Urine Urobilinogen 0.2 mg/dL mg/dL (<2.0) Leukocyte Esterase Rfl Negative ROBERT/UL ROBERT/UL (Negative) Urine RBC >75 /hpf H /hpf (0-2) Urine WBC 4-6 /hpf H /hpf Ur Squamous Epith Cells Rare /hpf /hpf (Few) Urine Bacteria Trace /hpf /hpf Urine Mucus Rare /lpf /lpf Urine Test 04/29/22 09:02 WBC RBC Hgb Hct MCV MCH MCHC RDW Plt Count MPV Immature Gran % (Auto) Neut % (Auto) Lymph % (Auto) [place] % (Auto) Eos % (Auto) Baso % (Auto) Lymph # (Auto) [place] # (Auto) Eos # (Auto) Baso # (Auto) Abs Immat Gran (auto) Absolute Neuts (auto) Absolute Nucleated RBC Nucleated RBC % Sodium Potassium Chloride Carbon Dioxide Anion Gap BUN
[2022-04-29] MEDS: ceFAZolin 2 GM/D5W 50 ML 2 GM/50 ML BAG IVPB (15:30)
--- NOTE | 2022-04-29 15:56 | W.PM.PROC2 ---
Procedure Note - Detailed Date of Procedure 04/29/22 Pre-op Diagnosis ureterolithiasis Post-op Diagnosis Same Procedure Performed Cysto, left retrograde pyelogram, left ureteral stent insertion, evacuation of bladder stones Surgeon Laila Long MD Findings Multiple stone fragments in the bladder [id number] left hydronephrosis Description of Procedure Informed consent was obtained. Patient taken to room. She was given preoperative IV antibiotics. She induced with anesthesia. A 22 F cystoscope was inserted through the urethra into the bladder. We noted multiple stone fragments in her bladder that were evacuated and sent as specimen. We then cannulated the left ureteral orifice and a retrograde pyelogram revealed mild to moderate left hydroureteronephrosis, the stone that was well visualized on her KUB last night was not as well seen today. Over a wire, a 4.8x26cm double-J stent was placed curl in renal pelvis and bladder. The bladder was emptied. Patient taken to PACU in stable condition. Urine Output 0 Pathology Yes Complications No immediate complications Condition Stable Disposition PACU
[2022-04-29] MEDS: LACTATED RINGERS 1,000 ML 30 ML IV CONT (16:00)
[2022-04-30] MEDS: MORPHINE SULFATE (*CRX) 4 MG/ML INJ IV PUSH (00:29)
[2022-04-30] MEDS: SODIUM CHLORIDE 0.9% IV 1,000 ML 125 ML IV CONT (00:30)
[2022-04-30] MEDS: ONDANSETRON INJ 4 MG/2 ML VIAL IV PUSH (02:58)
[2022-04-30] MEDS: KETOROLAC 30 MG/ML VIAL (*BKC) IV PUSH ×2 (03:01→09:16)
[2022-04-30 06:22] VITALS: BP 100/57; PULSE 50; RESP 16; TEMP 36.4; O2SAT 99
--- NOTE | 2022-04-30 06:48 | WPDUROPN2 ---
Progress Note: A&P Assessment and Plan (1) Left ureteral stone: Code(s): N20.1 - Calculus of ureter Status: Acute Assessment and Plan: Doing well this morning. Discharge after breakfast with f/u next week (check KUB and possible stent removal). Subjective Subjective Date/Time Seen: 04/30/22 06:48 Feeling much better with only minor stent irritation. Objective Data Vital Signs Vital Signs: Vital Signs - 24 hr 04/29/22 08:00 04/29/22 13:13 04/29/22 16:05 Temperature 98.7 F 98.4 F Pulse Rate 57 L 65 Respiratory Rate 16 20 Blood Pressure 109/60 87/53 L Pulse Oximetry 99 100 Oxygen Delivery Room Air Room Air Simple Face Mask Oxygen Flow Rate 8 04/29/22 16:20 04/29/22 16:35 04/29/22 16:45 Temperature Pulse Rate 49 L 49 L 48 L Respiratory Rate 16 16 12 Blood Pressure 90/49 L 90/47 L 94/50 L Pulse Oximetry 100 96 94 Oxygen Delivery Simple Face Mask Simple Face Mask Room Air Oxygen Flow Rate 8 8 04/29/22 17:00 04/29/22 21:51 04/29/22 20:00 Temperature 98.6 F Pulse Rate 46 L 65 65 Respiratory Rate 16 18 18 Blood Pressure 95/57 L 107/53 L Pulse Oximetry 94 97 97 Oxygen Delivery Room Air Room Air Oxygen Flow Rate 04/30/22 06:22 Temperature 97.5 F L Pulse Rate 50 L Respiratory Rate 16 Blood Pressure 100/57 L Pulse Oximetry 99 Oxygen Delivery Oxygen Flow Rate Intake/Output Intake/Output: Intake & Output 04/27/22 04/28/22 04/29/22 04/30/22 23:59 23:59 23:59 23:59 Intake Total 4070 1300 Output Total 0 1350 Balance 4070 -50 Meds/Results Medications: Active Medications Generic Name Dose Route Start Last Admin Trade Name Freq PRN Reason Stop Dose Admin Sodium Chloride 1,000 mls @ 125 mls/hr 04/29/22 03:55 04/30/22 00:30 Normal Saline Iv IV CONT 125 mls/hr .Q8H MEHNAZ Administration Ketorolac Tromethamine 30 mg 04/29/22 13:18 04/30/22 03:01 Ketorolac 30 Mg/Ml Vial (*Bkc) IV PUSH 30 mg Q6H PRN Administration Pain Rated 4-6 Morphine Sulfate 4 mg 04/29/22 03:55 04/30/22 00:29 Morphine Sulfate (*Crx) 4 Mg/Ml Inj IV PUSH 4 mg Q2H PRN Administration Pain Rated 7-10 Ondansetron HCl 4 mg 04/29/22 03:55 04/30/22 02:58 Ondansetron Inj 4 Mg/2 Ml Vial IV PUSH 4 mg Q4H PRN Administration Nausea Radiology Results: ITS Impressions Abdomen/Pelvis CT 04/29/22 07:21 IMPRESSION: Steinstrasse the proximal left ureter with moderately severe left hydroureteronephrosis 5.8 mm upper pole nonobstructing left renal calculus Cholelithiasis Abdomen X-Ray 04/29/22 07:43 IMPRESSION: Proximal left ureteral Steinstrasse Upper pole left renal calcified calculus Retrograde Pyelogram 04/29/22 16:24 IMPRESSION: Fluoroscopic documentation of left retrograde pyelography with stent placement. Labs Labs: Laboratory Results - last 24 hr 04/29/22 09:02 Urine Test Negative
--- NOTE | 2022-04-30 06:54 | PM.DS ---
DS: Admitting Diagnosis Discharge Date 04/30/2022 Admitting Diagnosis Left ureteral stone DS: Summary Hospital Course Hospital Course: Admitted with painful, retained ureteral stone fragments following ESWL to large ureteral stone day prior. Following stent placement she had prompt alleviation of pain and tolerated diet well. She was afebrile and hemodynimcally stable throughtout. Time Spent with Patient Time attestation: Total time spent providing and/or coordinating discharge services: 10min. Exam Const: General: no acute distress Resp: Effort & Inspection: normal respiratory effort GI: Inspection: non-distended GI Palp: No abdominal tenderness and No Guarding due to palpation present (GI) Auscultation: normal bowel sounds DS: Data Data Completed and Pending Pending studies at discharge: Pending at discharge 04/29/22 15:50 Surgical [PTH] Routine Labs on day of discharge: Labs from last 24 hours 04/29/22 09:02 Urine Test Negative Discharge Plan Discharge Attending physician on discharge: Laila Long Discharging Clinician: William Gonzalez Patient Disposition: Home, Self-Care Activity: may shower and no straining Diet: as tolerated Discharge Instructions: Follow up in our office on 05/04/22 at 2:30pm with Janeen LAZARO to repeat a urine culture and obtain a KUB prior to your appointment. Will decide at that time about stent removal (in office) vs. need for additional stone removal surgery. Patient Instructions: Antibiotic Form, Pain Management in Older Adults (DC) Stand Alone Forms: General Discharge Information Follow-up/Referrals: Laila Long MD [Physician] - Discharge Medications: New ketorolac 10 mg tablet 10 mg PO QID PRN (Reason: pain) 5 Days Qty: 20 1RF oxybutynin chloride 5 mg tablet 5 mg PO TID PRN (Reason: bladder spasms) Qty: 30 0RF No Action No Home Medications Other Ambulatory Orders: XR abdomen/kub 1V (Routine) Timeframe: [id number] Location: Determined by Patient Ordered By: Janeen Armstrong Date of admission: 04/29/22 03:56 Primary Care Provider: Satya Cortes Admitting Provider: Laila Long Attending physician on admission: Laila Long Condition: Stable
== END 2022-04-30 10:15 | disposition home or self-care (01) ==
LOC: ANHED 04:15 → ANH3MEDSUR 07:15
PROVIDERS: Anesthesiology; Admitting Provider Urology; Emergency Provider Emergency Medicine; PCP Family Medicine; Visit Provider Urology
PROC: (CPT 52352; principal; 2022-04-29 14:00)
DX: N21.0 Calculus in bladder (principal); N13.30 Unspecified hydronephrosis
CPT/HCPCS: 52332; 36415; 74018; 74176; 74420; 80048; 81001; 81025; 82365; 85025; 88300; 96361; 96365; 96374; 96375; 96376; 99285; A9270; C1769; C1887; C2617; G0378; J0131; J0690; J1100; J1885; J2250; J2270; J2405; J2704; J3010; J7030; J7120; Q9966

== ENCOUNTER 2022-05-04 12:00 | Outpatient (CLI) | payer OTHER, SELFPAY ==
--- NOTE | ~2022-05-04 | XR_ITS ---
EXAM: XR abdomen/kub 1V DATE: 05/04/2022 12:19 HISTORY: N20.1 - Calculus of ureter . COMPARISON: CT abdomen and pelvis 04/29/2022. FINDINGS: Left ureteral stent, IUD, both in good position. Clear lung bases. Normal bowel gas pattern . No organomegaly. Multiple calcifications project over the left renal pelvis and/or proximal ureter. Stable left upper pole calcification. No right calculi. Cholelithiasis. Regional bones and soft tiss ues normal for age. IMPRESSION: Left renal pelvic/proximal ureteral stones, not significantly changed. Reviewed, dictated and finalized at location K. IMPRESSION: Left renal pelvic/proximal ureteral stones, not significantly crocker ed.
== END 2022-05-04 12:01 | disposition home or self-care (01) ==
PROVIDERS: PCP Family Medicine; Visit Provider Nurse Practitioner Adult Health
DX: N20.1 Calculus of ureter (principal)
CPT/HCPCS: 74018

== ENCOUNTER 2022-05-11 10:45 | Outpatient (CLI) | payer OTHER, SELFPAY ==
--- NOTE | ~2022-05-11 | XR_ITS ---
EXAMINATION: XR abdomen/kub 1V INDICATION: Left ureteral stone TECHNIQUE: Supine views of the abdomen were obtained on 2 radiographs. COMPARISON: 05/04/2022 FINDINGS: A left internal ureteral stent is in expected position. At least two stones are seen adjace nt to the proximal aspect of the stent, there is a 3 mm stone in the left kidney. Cholelithiasis is n oted. An IUD is present in the pelvis. The bowel gas pattern is normal. Projecting between the left L 2 and L3 transverse processes, which measure 5 mm and 4 mm. IMPRESSION: 1. Left internal ureteral stent in expected position with stones adjacent to the proximal stent. 2. Left nephrolithiasis. 3. Cholelithiasis. Reviewed, dictated and finalized at location A. IMPRESSION: 1. Left internal ureteral stent in expected position with stones adjacent to th e proximal stent. 2. Left nephrolithiasis. 3. Cholelithiasis.
== END 2022-05-11 10:46 | disposition home or self-care (01) ==
PROVIDERS: PCP Family Medicine; Visit Provider Nurse Practitioner Adult Health
DX: K80.20 Calculus of gallbladder without cholecystitis without obstruction (principal); N20.0 Calculus of kidney
CPT/HCPCS: 74018

== ENCOUNTER 2022-05-15 02:31 | Day surgery (SDC) | payer OTHER, SELFPAY ==
[2022-05-07 12:37] VITALS: BMI 28.1
--- NOTE | 2022-05-07 12:46 | PC.NURSE ---
Report to the Outpatient Waiting Room, entrance under the green pavilion located off [facility], at time 1230 on date 05/15/22. OR Time: 1430. - You and your visitor will be asked a series of questions to screen for COVID 19 for your protection. - Only one visitor is allowed at this time. - The patient visitor is requested to leave or wait in car when not with patient. - A mask is required within the hospital. Patients may have clear liquids (water, carbonated beverages, clear teas, apple juice) until 3 hours prior to surgery with a maximum of 20 ounces. - No food from midnight until time of surgery Take the following medications with a SIP of water the morning of surgery: PAIN PILL (IF NEEDED) Medications to discontinue per physician: TORADOL Date to take last dose: PER DR. BORDEN Please no make-up, nail icelandic, hairspray, perfume, deodorant, or body powder the day of surgery. No jewelry (including any body piercings) or valuables the day of surgery, leave them at home. Please take a shower or bath the night before, or the morning of, surgery with an antibacterial soap. Wear comfortable, loose fitting clothing. - Jewelry must be removed prior to entering the operating room. Rings and piercings that are not removed may be cut off. - The hospital will not accept responsibility for valuables. - Please leave all valuables, including medications, at home the day of surgery. If you are going home after surgery, a licensed class b truck driver must drive you home. - NO public transportation without another adult. - We recommend that an adult stay with you for 24 hours following discharge. - We also recommend that you do not drive, make important decision, drink alcoholic beverages, or take any drugs that were not prescribed by your health care provider for at least 24 hours after your discharge time. Follow any additional instructions given to you from your surgeon. If you or anyone in your household have experienced Covid symptoms in the past week, please notify your surgeon or the nurse liaison at the phone number below for possible testing. Telephone instructions given to PT - SCAR MUNROE and asked if any additional questions and then verbalized understanding. Patient advised to call surgeon office or pre surgery nurse liaison [phone] if any additional questions.
[2022-05-15] VITALS (10 sets, daily range): BP systolic 97–116; BP diastolic 46–69; PULSE 51–97; RESP 13–20; TEMP 36.4–37.1; O2SAT 97–100
--- NOTE | ~2022-05-15 | XR_ITS ---
XR stent kub - surgery DATE: 05/15/2022 15:14 INDICATION: Stent exchange, stone extraction TECHNIQUE: 2 medical physics researcher spot C-arm images of the abdomen and pelvis and 2 postprocedure spot C-arm exposur es of the abdomen and pelvis COMPARISON: 05/11/2022 KUB FINDINGS: There is exchange of the left internal urinary stent for a new and. Multiple calcified ston es along the proximal and mid left ureter on the medical physics researcher image are not evident along the ureter on the post-stent exchange view. Some of the stones may overlie the left renal pelvis or left kidney. Correl ation with procedure report is recommended. IMPRESSION: Left internal urinary stent exchange Reviewed, dictated and finalized at location A.
--- NOTE | 2022-05-15 13:38 | WPDHPUPDATE1 ---
History and Physical Update Update Date/Time: 05/15/22 13:38 History and Physical has been reviewed, including an updated exam of the patient. There are NO changes in the patient's condition. Risks, benefits, and alternatives have been discussed and questions answered. Patient agrees to proceed with procedure. Proceed with cysto, left retrograde, left ureteroscopy with stone extraction, possible laser, stent replacement
[2022-05-15] MEDS: LACTATED RINGERS 1,000 ML 30 ML IV CONT ×2 (13:40→15:13)
--- NOTE | 2022-05-15 14:04 | P.PNAN_ITS ---
Anes - Initial Pre Proc Eval Procedure: Operation Date: 05/15/22 15:30 Proposed Procedures p Cystoscopy, Left Ureteroscopy, Left Retrograde Pyelogram, Left Stone Extraction, Left Stent Exchange, Possible Holmium Laser Procedure - Hemant Mckeon MD Date/Time: 05/15/22 14:04 Surgeon: Hemant Mckeon MD Pre Op Diagnosis: left ureteral stone Patient Data Age: 37 Gender: F Height: 1.7 m Weight: 83 kg Last Vital Signs Temp 37.1 C 05/15/22 13:34 Pulse 97 05/15/22 13:34 Resp 20 05/15/22 13:34 BP 108/64 05/15/22 13:34 Pulse Ox 99 05/15/22 13:34 O2 Del Method Room Air 05/15/22 13:34 Allergies Allergy/AdvReac Type Severity Reaction Status Date / Time No Known Allergies Allergy Verified 05/15/22 13:30 Home Medications Medication Instructions Recorded Confirmed Type ketorolac 10 mg tablet 10 mg PO QID PRN pain 5 days #20 04/29/22 05/15/22 Rx tabs oxybutynin chloride 5 mg tablet 5 mg PO TID PRN bladder spasms #30 04/29/22 05/15/22 Rx tabs hydrocodone 5 mg-acetaminophen 325 1 - 2 tablet PO Q6H PRN Pain 05/07/22 05/15/22 History mg tablet Patient hx anesthesia problems: none Family hx anesthesia problems: none Results Review: All pre-operative results and documents have been reviewed as part of the pre- operative evaluation. [facility] Past Medical History Medical History (Updated 04/29/22 @ 12:25 by Janeen Armstrong APRN) Kidney stones Surgical History Surgical History (Updated 05/15/22 @ 14:04 by Zach Peng MD) H/O cardiac radiofrequency ablation H/O dilation and curettage History of lithotripsy Social History Social History Years smoked: 5 Smoking status: Never smoker Tobacco type: cigarettes Smoking end date: 11/15/19 Additional smoking assessment comments: no smoking for 2 yrs Alcohol intake: current Alcohol use details: SPECIAL OCCASIONS Substance use: current Substance use type: marijuana Living arrangements: with family Gender identity (if verbalized by the patient): Female Sexual Orientation (if Verbalized by the Patient): Straight or Heterosexual Spiritual care concerns: Yes Anes - Eval Final PreProcedure Day of Procedure 05/15/22 14:04 Patient weight: overweight Heart: regular rate and rhythm Lungs: clear to auscultation Airway: Mallampati scale class II Neurological: alert and oriented Last oral intake: >/= 8 hours ASA classification: II Emergent: no Anesthetic plan: proceed Anesthesia type and monitoring: general LMA and standard monitoring Results Review: All pre-operative results and documents have been reviewed as part of the pre- operative evaluation. Informed Consent: The patient's anesthetic plan and its attendant risks and benefits were discussed with the patient/family/POA. Questions were solicited and answers provided to the satisfaction of the patient/family/POA.
[2022-05-15] MEDS: ceFAZolin 2 GM/D5W 50 ML 2 GM/50 ML BAG IVPB (14:37)
[2022-05-15] MEDS: LIDOCAINE HCL 2% GEL UROJET 10 ML PKG MUCOUS MEM (14:46)
--- NOTE | 2022-05-15 15:10 | W.PM.PROC2 ---
Procedure Note - Detailed Date of Procedure 05/15/22 Pre-op Diagnosis left ureteral stone Post-op Diagnosis Same (8 ureteral stones) Procedure Performed Cystoscopy, left ureteroscopy with extraction of 8 ureteral calculi, left stent exchange 4.8 Albanian contour Surgeon Hemant Mckeon MD Anesthesia General Description of Procedure Patient is taken to the operative suite correctly identified. Once anesthesia was obtained she was placed in dorsal lithotomy position and prepped and draped usual sterile fashion. Twenty-two Albanian scope was inserted into the bladder. The prior stent was grasped and brought out to the meatus. A guidewire was passed through the stent. A rigid ureteral scope was then inserted into the left ureteral orifice. Eight stones were retrieved using escape basket. Reinspection revealed no further ureteral calculi. A flexible ureteral scope was then inserted up into the kidney. No residual stones noted in the kidney. 4.8 Albanian contour stent was then placed with the proximal end coiled in the renal pelvis and the distal in the bladder. Bladder was drained. 2% viscous lidocaine was inserted urethra. Patient is taken recovery stable condition and she will follow-up in 1-2 weeks for stent removal. She will call for appointment. Drains Yes Packing No Pathology Yes Complications No immediate complications Condition Stable Disposition PACU
--- NOTE | 2022-05-15 16:35 | SUR.PHASEII ---
[id number]- Call to Dr. Mckeon patient requesting additional oxybutynin be sent to her preferred pharmacy. Per Dr. Mckeon send oxybutynin script for 5MG PRN TID, 60 count supply.
== END 2022-05-15 16:50 | disposition home or self-care (01) ==
PROVIDERS: PCP Family Medicine; Visit Provider Urology
PROC: (CPT 52352; principal; 2022-05-15 15:30)
DX: N20.1 Calculus of ureter (principal); Z87.891 Personal history of nicotine dependence; F12.90 Cannabis use, unspecified, uncomplicated
CPT/HCPCS: 52332; 52352; 82365; 88300; A9270; C1769; C2617; J0690; J1100; J2250; J2405; J2704; J3010; J7120

== ENCOUNTER 2022-08-14 17:04 | Outpatient (CLI) | payer OTHER, SELFPAY ==
--- NOTE | ~2022-08-14 | XR_ITS ---
EXAMINATION: XR abdomen/kub 1V DATE: 08/14/2022 17:24 INDICATION: Left ureteral stone. TECHNIQUE: A supine view of the abdomen on 2 radiographs was obtained. COMPARISON: Abdomen radiograph 05/11/2022, CT abdomen and pelvis 04/29/2022 FINDINGS: There are no dilated loops of bowel. There is an intrauterine device in expected position. There is a gallstone in the gallbladder. There is a 5 mm stone in left kidney upper pole. IMPRESSION: 1. Left kidney stone. 2. Cholelithiasis. Reviewed, dictated and finalized at location A.
== END 2022-08-14 17:05 | disposition home or self-care (01) ==
LOC: ANHIMG 17:05
PROVIDERS: PCP Family Medicine; Visit Provider Urology
DX: N20.0 Calculus of kidney (principal); K80.20 Calculus of gallbladder without cholecystitis without obstruction
CPT/HCPCS: 74018

== ENCOUNTER 2022-08-17 15:21 | Outpatient (CLI) | payer OTHER, SELFPAY ==
[2022-08-17 15:53] LABS: Alanine Aminotransferase 14 U/L (6-35); Albumin Level 4.3 g/dL (3.5-5.1); Alkaline Phosphatase 65 U/L (38-126); Amylase 82 U/L (30-110); Aspartate Amino Transferase 17 U/L (14-36); Bilirubin,Total 0.3 mg/dL (0.2-1.3); Lipase 70 U/L (23-300)
== END 2022-08-17 15:22 | disposition home or self-care (01) ==
PROVIDERS: PCP Family Medicine; Visit Provider Surgery
DX: K80.20 Calculus of gallbladder without cholecystitis without obstruction (principal); Z01.818 Encounter for other preprocedural examination
CPT/HCPCS: 36415; 80076; 82150; 83690; 86850; 86900; 86901

== ENCOUNTER 2022-08-21 00:22 | Day surgery (SDC) | payer OTHER, SELFPAY ==
[2022-08-13 12:36] VITALS: BMI 29.7
--- NOTE | 2022-08-13 12:49 | PC.NURSE ---
Report to the Outpatient Waiting Room, entrance under the green pavilion located off [facility], at time 11:30 on date 08/21/22. OR Time: 1:30. Time changes happen often and if your time is changed the preop area will call you the afternoon before. - You and your visitor will be asked to self-screen and do not enter if you have any COVID symptoms. - Only one visitor and NO children visitors are allowed at this time. - The patient visitor is requested to leave or wait in car when not with patient due to restrictions. - A mask is required within the hospital. Patients may have clear liquids (water, carbonated beverages, clear teas, apple juice) until 3 hours prior to surgery (10:30) with a maximum of 20 ounces. - No food from midnight until time of surgery Take the following medications with a SIP of water the morning of surgery: NONE Medications to discontinue per physician: VITAMINS Date to take last dose: 08/17/22 Please no make-up, nail english, hairspray, perfume, deodorant, or body powder the day of surgery. No jewelry (including any body piercings) or valuables the day of surgery, leave them at home. Please take a shower or bath the night before, or the morning of, surgery with an antibacterial soap (HIBICLENS). Wear comfortable, loose fitting clothing. - Jewelry must be removed prior to entering the operating room. Rings and piercings that are not removed may be cut off. - The hospital will not accept responsibility for valuables. - Please leave all valuables, including medications, at home the day of surgery. If you are going home after surgery, a licensed screw driver operator must drive you home. - NO public transportation without another adult. - We recommend that an adult stay with you for 24 hours following discharge. - We also recommend that you do not drive, make important decision, drink alcoholic beverages, or take any drugs that were not prescribed by your health care provider for at least 24 hours after your discharge time. Follow any additional instructions given to you from your surgeon. If you or anyone in your household have experienced Covid symptoms in the past week, please notify your surgeon or the nurse liaison at the phone number below for possible testing. Telephone instructions given to PT Reese ABBOTT and asked if any additional questions and then verbalized understanding. Patient advised to call surgeon office or pre surgery nurse liaison [phone] if any additional questions.
--- NOTE | 2022-08-20 17:07 | WPDANESEPPF ---
Anes - Initial Pre Proc Eval Procedure: Operation Date: 08/21/22 13:30 Proposed Procedures p Laparoscopic Cholecystectomy, Possible Open - Nitish Moe DO <Romie Bermeo DO - Last Filed: 08/30/22 20:44> Date/Time: 08/20/22 17:07 <Romie Bermeo DO - Last Filed: 08/30/22 20:44> Surgeon: Nitish Moe DO <Romie Bermeo DO - Last Filed: 08/30/22 20:44> Pre Op Diagnosis: Symptomatic Cholelithiasis <Romie Bermeo DO - Last Filed: 08/30/22 20:44> Patient Data Age: 37 Gender: F Height: 1.7 m Weight: 86.18 kg <Romie Bermeo DO - Last Filed: 08/30/22 20:44> Allergies Allergy/AdvReac Type Severity Reaction Status Date / Time No Known Allergies Allergy Verified 08/26/22 10:51 <Romie Bermeo DO - Last Filed: 08/30/22 20:44> Home Medications Medication Instructions Recorded Confirmed Type cholecalciferol (vitamin D3) 25 25 mcg PO DAILY 07/06/22 08/24/22 History mcg (1,000 unit) capsule multivitamin 1 tablet PO DAILY 07/06/22 08/24/22 History hydrocodone 5 mg-acetaminophen 325 1 tablet PO Q4H PRN pain #10 tabs 08/23/22 08/24/22 Rx mg tablet <Romie Bermeo DO - Last Filed: 08/30/22 20:44> Patient hx anesthesia problems: none <Won Bhat MD - Last Filed: 08/21/22 13:09> Family hx anesthesia problems: none <Won Bhat MD - Last Filed: 08/21/22 13:09> Results Review: All pre-operative results and documents have been reviewed as part of the pre-operative evaluation. <Romie Bermeo DO - Last Filed: 08/30/22 20:44> PMFSH Past Medical History Medical History: Medical History (Updated 08/25/22 @ 12:41 by Blu Jones MD) GERD (gastroesophageal reflux disease) Kidney stones Leukocytosis RUQ pain WPW (Iwkbn-Ydvydfbei-Wiphg syndrome) <Romie Bermeo DO - Last Filed: 08/30/22 20:44> Surgical History Surgical History: Surgical History (Updated 08/27/22 @ 16:24 by CHAVA Diaz) H/O cardiac radiofrequency ablation H/O dilation and curettage History of lithotripsy S/P laparoscopic cholecystectomy <Romie Bermeo DO - Last Filed: 08/30/22 20:44> Family History Family History: Family History Other Breast cancer Diabetes mellitus Malignant neoplasm of prostate <Romie Bermeo DO - Last Filed: 08/30/22 20:44> Social History Social History: Social History Years smoked: 6 Smoking status: Never smoker Tobacco type: cigarettes Smoking end date: 11/15/19 Additional smoking assessment comments: no smoking for 2 yrs Alcohol intake: never Alcohol use details: SPECIAL OCCASIONS Substance use: never Substance use type: marijuana Other substance usage details: Occasional marijuana use. Living arrangements: with family Gender identity (if verbalized by the patient): Female Sexual Orientation (if Verbalized by the Patient): Straight or Heterosexual Spiritual care concerns: No <Romie Bermeo DO - Last Filed: 08/30/22 20:44> Anes - Eval Final PreProcedure Day of Procedure 08/20/22 17:07 <Romie Bermeo DO - Last Filed: 08/30/22 20:44> Patient weight: overweight <Romie Bermeo DO - Last Filed: 08/30/22 20:44> Heart: regular rate and rhythm <Romie Bermeo DO - Last Filed: 08/30/22 20:44> Lungs: clear to auscultation <Romie Bermeo DO - Last Filed: 08/30/22 20:44> Airway: Mallampati scale class II <Romie Bermeo DO - Last Filed: 08/30/22 20:44> Neurological: alert and oriented <Romie Bermeo DO - Last Filed: 08/30/22 20:44> Last oral intake: >/= 8 hours <Romie Bermeo DO - Last Filed: 08/30/22 20:44> ASA classification:
[2022-08-21] VITALS (9 sets, daily range): BP systolic 107–130; BP diastolic 47–75; PULSE 51–81; RESP 10–18; TEMP 37.2; O2SAT 95–100
[2022-08-21] MEDS: ACETAMINOPHEN 500 MG TABLET 1000 MG PO (12:20)
[2022-08-21] MEDS: LACTATED RINGERS 1,000 ML 30 ML IV CONT ×2 (12:40→15:21)
[2022-08-21] MEDS: KETOROLAC 15 MG/ML VIAL (*BKC) IV PUSH (13:32)
--- NOTE | 2022-08-21 13:57 | WPDHPUPDATE1 ---
History and Physical Update Update Date/Time: 08/21/22 13:57 History and Physical has been reviewed, including an updated exam of the patient. There are NO changes in the patient's condition. Risks, benefits, and alternatives have been discussed and questions answered. Patient agrees to proceed with procedure.
--- NOTE | 2022-08-21 13:57 | PM.IMHP ---
H&P: HPI History of Present Illness Date/Time: 08/21/22 13:57 Chief Complaint: Cholelithiasis Narrative: this is a 37-year-old woman who presents for laparoscopic cholecystectomy. She reports no changes since last seen in the office. Review of Systems Review of Systems: All systems reviewed & are unremarkable except as noted in HPI and below Constitutional: Constitutional: Denies chills, Denies fever(s), Denies headache(s) and Denies weight loss Eyes: Eyes: Denies change in vision ENT: Denies dizziness, Denies headache(s), Denies neck mass and Denies throat swelling Cardiovascular: Cardiovascular: Denies chest pain, Denies lightheadedness and Denies dyspnea Respiratory: Respiratory: Denies cough, Denies dyspnea and Denies wheezing Gastrointestinal: Gastrointestinal: Denies abdominal pain, Denies change in bowel habits, Denies nausea and Denies vomiting Genitourinary: Genitourinary: Denies hematuria and Denies dysuria Musculoskeletal: Musculoskeletal: Reports as per HPI Integumentary/Breasts: Skin/Breast: Reports as per HPI Neurologic: Denies dizziness and Denies headache(s) Allergic/Immunologic: Allergic/Immunologic: Denies throat swelling and Denies wheezing [facility] Past Medical History Medical History (Updated 08/20/22 @ 17:07 by Romie Bermeo DO) GERD (gastroesophageal reflux disease) Kidney stones WPW (Anuxk-Aprmglkmq-Qjgfh syndrome) Surgical History Surgical History H/O cardiac radiofrequency ablation H/O dilation and curettage History of lithotripsy Family History Family History Other Breast cancer Diabetes mellitus Malignant neoplasm of prostate Social History Social History Years smoked: 6 Smoking status: Former smoker Tobacco type: cigarettes Smoking end date: 11/15/19 Additional smoking assessment comments: no smoking for 2 yrs Alcohol intake: never Alcohol use details: SPECIAL OCCASIONS Substance use: never Substance use type: does not use Gender identity (if verbalized by the patient): Female Sexual Orientation (if Verbalized by the Patient): Straight or Heterosexual Spiritual care concerns: No Meds Home Medications and Allergies Home Medications Medication Instructions Recorded Confirmed Type cholecalciferol (vitamin D3) 25 25 mcg PO DAILY 07/06/22 08/21/22 History mcg (1,000 unit) capsule multivitamin 1 tablet PO DAILY 07/06/22 08/21/22 History Allergies Allergy/AdvReac Type Severity Reaction Status Date / Time No Known Allergies Allergy Verified 08/21/22 12:14 Vital Signs Vital Signs - 24 hr 08/21/22 13:20 Temperature 37.2 C Pulse Rate 67 Respiratory Rate 16 Blood Pressure 107/67 Pulse Oximetry 100 Oxygen Delivery Room Air Exam Const: General: no acute distress and alert Orientation/consciousness: patient oriented x3 HENMT: Head: normocephalic and atraumatic Ears: hearing grossly normal bilaterally Face/Nose/Sinus: Normal nares present Mouth: Yes Normal oral and palatal mucosa present Eyes: Periorbital: periorbital findings normal Sclera: sclerae normal EOM: EOMs intact bilaterally Neck: Neck: normal visual inspection, no lymphadenopathy and trachea midline Chest: Chest palpation & inspection: normal inspection of the chest Resp: Effort & Inspection: normal respiratory effort Auscultation: clear to auscultation bilaterally Cardio: Jugular venous distension: no JVD Rate: regular rate Rhythm: regular rhythm Heart sounds: S1 normal heart sound present and S2 normal heart sound present Peripheral pulses: Peripheral pulses 2+ throughout GI: Inspection: normal to inspection GI Palp: Yes Soft to palpation, No Tenderness to palpation present (GI), No Guarding due to palpation present (GI) and No Rebound tenderness present Percuss
[2022-08-21] MEDS: ceFAZolin 2 GM/D5W 50 ML 2 GM/50 ML BAG IVPB (14:02)
--- NOTE | 2022-08-21 15:16 | W.PM.PROC2 ---
Procedure Note - Detailed Date of Procedure 08/21/22 Pre-op Diagnosis Symptomatic Cholelithiasis Post-op Diagnosis Same Procedure Performed Laparoscopic Cholecystectomy Surgeon Nitish Moe, DO Anesthesia General and Local (0.5% bupivacaine) Indications This is a 37-year-old woman who presented with occasional right upper quadrant pain. She had a CT which showed a large gallstone within her gallbladder. Discussions were made with the patient about treatment options and decision was made to proceed with laparoscopic cholecystectomy, possible open. Findings Laparoscopic cholecystectomy was performed. The patient had several pericholecystic adhesions and some chronic thickening of her gallbladder wall. There was a large stone lodged in the neck of the gallbladder. The cystic duct was identified and appeared normal in size. The gallbladder was removed and sent to the lab for pathology. Description of Procedure Procedure as well as risks, benefits, and alternatives were discussed with patient. Written consent was obtained and placed in chart prior to procedure. The patient was brought back to surgical suite. Patient was placed in supine position on operating table. Time-out was done to confirm patient and procedure. Patient was then intubated by the anesthesia department. Abdomen was prepped and draped in sterile fashion using chlorhexidine prep. 0.5% bupivacaine with epinephrine was infiltrated at each site of incision. A 5 millimeter incision was made near the umbilicus, and a 5 millimeter Optiview trocar was advanced through the abdominal layers under direct visualization. Once inside the abdominal cavity, carbon dioxide was insufflated to create a pneumoperitoneum. The camera was inserted and the abdomen was inspected. No immediate abnormalities were identified. The patient was placed in reverse Trendelenburg position and rotated slightly to the left. An 11 millimeter incision was made in the subxiphoid region, and an 11 millimeter trocar was inserted under direct visualization. Two 5 millimeter incisions were made in the right upper quadrant, and two 5 millimeter trocars were inserted under direct visualization. The gallbladder was identified and grasped at the fundus and retracted superiorly. It was then grasped at the infundibulum retracted laterally. Careful dissection around the neck of the gallbladder was performed using blunt dissection with a [place] grasper and hook electrocautery. The cystic duct was identified, and a window was created behind it. The cystic artery was also identified and a window was created behind it. The critical view of safety was identified, visualizing the cystic duct running directly into the neck of the gallbladder, and the cystic artery running directly into the wall of the gallbladder. A 5 millimeter clip instructor modeling was then used to place 2 clips proximally and 1 clip distally on both the cystic duct and cystic artery. They were then both transected using endoscopic scissors. Once safely away from the jose hepatitis, the gallbladder was dissected free from the liver bed using hook electrocautery. Hemostasis was achieved along the way. The gallbladder was removed completely and then removed through the subxiphoid port. The liver bed was then inspected. Hemostasis appeared adequate, and our clips appeared secure. The area was gently irrigated with sterile saline. No other abnormalities were seen. The patient was flattened out in bed, and 1 final inspection was made around the abdominal cavity. The subxiphoid port was removed, and a Hector Rajwinder cone was used to approximate the fascia with an 0-Vicryl simple interrupted suture. The remaining ports were then removed under direct visualization, the camera was removed, and the pneumoperitoneum was released. The skin of the incisions was approximated using 4-0 Monocryl subcuticular sutures. Exofin glue was applied on top. The patient was then awakened
[2022-08-21] MEDS: fentaNYL CITRATE INJ (*CRX) 100 MCG/2 ML VIAL 25 MCG IV PUSH ×5 (15:32→16:08)
[2022-08-21] MEDS: oxyCODONE HCL (*CRX) 5 MG TAB IR PO (17:05)
== END 2022-08-21 17:58 | disposition home or self-care (01) ==
PROVIDERS: PCP Family Medicine; Visit Provider Surgery
PROC: 0FT44ZZ Resection of Gallbladder, Percutaneous Endoscopic Approach (ICD-10-PCS; CPT 47562; principal; 2022-08-21 13:30)
DX: K80.10 Calculus of gallbladder with chronic cholecystitis without obstruction (principal); K21.9 Gastro-esophageal reflux disease without esophagitis; I45.6 Pre-excitation syndrome
CPT/HCPCS: 47562; 36415; 80076; 82150; 83690; 85610; 85730; 86850; 86900; 86901; 87086; 87088; 88304; 93005; A9270; J0690; J1100; J1885; J2001; J2250; J2405; J2704; J2710; J3010; J7120

== ENCOUNTER 2022-08-21 10:43 | Outpatient (CLI) | payer OTHER, SELFPAY ==
--- NOTE | 2022-08-21 10:54 | ECG_ITS ---
Measurements Intervals [place] Rate: 62 P: 49 WI: 152 QRS: 17 QRSD: 78 T: 26 QT: 389 QTc: 397 Interpretive Statements SINUS RHYTHM NORMAL ECG NO PREVIOUS ECG AVAILABLE FOR COMPARISON Electronically Signed On 08-21-2022 13:50:48 CDT by Sang Pagan M.D.
[2022-08-21 11:48] LABS: INR 1.1; Prothrombin Time 13.8 Seconds (11.1-14.7)
[2022-08-21 11:49] LABS: Partial Thromboplastin Time 29.9 SECONDS (22.3-36.8)
== END 2022-08-21 10:44 | disposition home or self-care (01) ==
LOC: ANHSURGERY 10:46
PROVIDERS: PCP Family Medicine; Visit Provider Urology
DX: N20.1 Calculus of ureter (principal); I45.6 Pre-excitation syndrome; Z01.818 Encounter for other preprocedural examination
CPT/HCPCS: 36415; 85610; 85730; 87086; 87088; 93005

== ENCOUNTER 2022-08-24 13:09 | Outpatient (CLI) | payer OTHER, SELFPAY ==
[2022-08-24 13:49] LABS: Basophils Percent Auto 0.2 % (0.2-1.2); Eosinophils Percent Auto 0.1 % (0-4.4); Hematocrit 42.1 % (37.0-47.0); Hemoglobin 13.8 g/dL (12.0-15.0); Immature Granulocyte Absolute 0.07 K/mm3 (0.00-0.031); Immature Granulocyte Percent A 0.5 % (0-0.5); Lymphocytes Absolute Auto 1.66 K/mm3 (0.9-3.2); Lymphocytes Percent Auto 11.2 % (18.3-44.2); Mean Corpuscular HGB Conc 32.8 g/dl (32-36); Mean Corpuscular Hemoglobin 29.9 pg (26-34); Mean Corpuscular Volume 91.1 fl (80-100); Mean Platelet Volume 11.2 fl (7.4-10.4); Monocytes Percent Auto 6.5 % (2.6-8.5); Neutrophils Absolute Auto 12.1 K/mm3 (1.3-6.7); Neutrophils Percent Auto 81.5 % (45.5-73.1); Platelet Count Result 350 k/mm3 (150-375); Red Blood Count 4.62 M/mm3 (4.2-5.4); Red Cell Distribution Width 12.9 % (11.5-14.5); White Blood Count 14.8 K/mm3 (4.5-10.0)
[2022-08-24 14:00] LABS: Alanine Aminotransferase 144 U/L (6-35); Albumin Level 4.3 g/dL (3.5-5.1); Alkaline Phosphatase 103 U/L (38-126); Anion Gap 11 mmol/L (8-16); Aspartate Amino Transferase 123 U/L (14-36); Bilirubin,Total 3.9 mg/dL (0.2-1.3); Blood Urea Nitrogen 13 mg/dL (7-17); Calcium 8.7 mg/dL (8.4-10.2); Carbon Dioxide 25 mmol/L (22-30); Chloride 101 mmol/L (98-107); Estimated Glomerular Filt Rate > 60; Glucose 127 mg/dL (65-110); Potassium 3.6 mmol/L (3.4-5.0); Sodium 137 mmol/L (137-145)
== END 2022-08-24 13:10 | disposition home or self-care (01) ==
PROVIDERS: PCP Family Medicine; Visit Provider Surgery
DX: K80.20 Calculus of gallbladder without cholecystitis without obstruction (principal)
CPT/HCPCS: 36415; 80053; 85025

== ENCOUNTER 2022-08-24 16:43 | Inpatient (IN) | payer OTHER, SELFPAY ==
--- NOTE | ~2022-08-24 | CT_ITS ---
EXAMINATION: CT abdomen pelvis w con DATE: 08/24/2022 20:20 INDICATION: elevated liver enzymes, s/p lap kera TECHNIQUE: Computed tomography (CT) of the abdomen and pelvis was performed with 100 mL Omnipaque-350 intravenous contrast. Automated exposure control and iterative reconstruction technique were employe d. The dose-length product was 682.56 mGy-cm. COMPARISON: 04/29/2022. FINDINGS: Lower thorax: Subsegmental bibasilar atelectasis. Liver: Normal. Biliary/Gallbladder: Surgically absent. Irregular, isodense material in the gallbladder fossa, possib ly represent clot. No bile duct dilation. Pancreas: No mass or duct dilation. Spleen: Normal. Adrenals:No mass. Kidneys: Nonobstructing 4 mm left upper pole calculus. No suspicious mass. No hydronephrosis. GI tract: Gastric and proximal duodenal wall edema. No small or large bowel dilation. Normal appendix . Mesentery/Peritoneum: No mass. Small volume perihepatic fluid and gas. Fluid tracks down the right pa racolic gutter. Retroperitoneum: No mass. Pelvis: Moderate volume free pelvic fluid with dependent layering. IUD, in good position, otherwise t he pelvic organs are within normal limits. Soft Tissues: Post surgical changes to the anterior abdominal wall, including extraperitoneal gas oli r the umbilicus. Bones: No acute osseous finding. IMPRESSION: 1. Small-moderate abdominopelvic fluid, slightly greater volume than expected for normal postsurgical change. Hemorrhage or bile leak are not excluded. Consider careful observation for clinical signs of volume loss and evaluation of serial H&H values. 2. Gastritis and duodenitis. Urgent results reported telephonically to the patient's nurse Blanca Carter by Dr. Walker at 9:47 PM on 08/24/2022. Reviewed, dictated and finalized at location K. IMPRESSION: 1. Small-moderate abdominopelvic fluid, slightly greater volume than expected f or normal postsurgical change. Hemorrhage or bile leak are not excluded. Consid er careful observation for clinical signs of volume loss and evaluation of seri al H&H values. 2. Gastritis and duodenitis. Urgent results reported telephonically to the patient's nurse Blanca Walker at 9:47 PM on 08/24/2022.
--- NOTE | ~2022-08-24 | XR_ITS ---
EXAMINATION: XR ERCP DATE: 08/26/2022 11:30 CDT INDICATION: STONES, UNSUCCESSFUL ERCP . TECHNIQUE: 2 fluoroscopic images of the upper abdomen were obtained during ERCP performed by the surg leopoldo. I was not present in the operating room. Fluoroscopy exposure time was 66.4 seconds. Air Kerma 8 .80 mGy. DAP 0.17695 mGym2. COMPARISON: CT abdomen and pelvis 08/24/2022, hepatobiliary scan 08/25/2022. FINDINGS: Fluoroscopic images demonstrate the tip of the endoscope in the second portion of the duodenum. An ob lique image demonstrates nearly the full curvature of the skull through the stomach. IMPRESSION: Fluoroscopic documentation of ERCP. Please refer to the operative note for complete procedural detail s . Reviewed, dictated and finalized at location K. IMPRESSION: Fluoroscopic documentation of ERCP. Please refer to the operative note for comp lete procedural details .
--- NOTE | ~2022-08-24 | NM_ITS ---
EXAMINATION: NM hepatobiliary wo pharm DATE: 08/25/2022 08:39 INDICATION: Bile leak. Abnormal liver function tests. COMPARISON: CT abdomen and pelvis 08/24/2022 TECHNIQUE: 5.1 mCi Tc-99m mebrofenin (Choletec) was administered intravenously. Scintigraphic images of the abdomen were obtained for one hour. FINDINGS: There is normal clearance of radiotracer from the blood pool. There is homogeneous tracer u ptake by the liver. Activity collects in the gallbladder fossa. There is activity in the small bowel. IMPRESSION: 1. Bile leak. Reviewed, dictated and finalized at location A. IMPRESSION: 1. Bile leak.
--- NOTE | 2022-08-24 16:50 | ADMGEN ---
This patient, Asha Terry, was admitted to 2 Medical Room 260-. Patient/family oriented to hospital policies and general routines including ID bracelet, bed and alarms, visiting hours, pain management, procedures, bathroom and other care routines, personal items, smoking policy, room service/diet, and visiting hours. Information on how to activate the Rapid Response Team has been discussed. Patient/Family are encouraged to report perceived risks to care and to ask questions if they do not understand what they are told or what they should do.
[2022-08-24 17:29] VITALS: BMI 30.2
--- NOTE | 2022-08-24 17:30 | PM.IMHP ---
H&P: HPI History of Present Illness Date/Time: 08/24/22 17:30 Chief Complaint: Abdominal pain and dark urine Narrative: this is a 37-year-old woman who is status post laparoscopic cholecystectomy on 08/21/2022. She was experiencing pain postoperatively but was able to be discharged home. She was experiencing worsening pain on postop day 1 but pain improved slightly with ambulation. She then called on postop day 2 and was experiencing very dark urine. She felt like she was drinking plenty of water and was staying hydrated but her urine was still very dark. She denied any yellow skin or yellow eyes. Her pain was slightly improved. She then called again on postop day 3 which is today and was still complaining of very dark urine. Labs were ordered and she had evidence of a high white blood count as well as elevated liver enzymes with a total bilirubin of 3.9. She was then directly admitted for further workup to assess for common bile duct obstruction or bile leak. Review of Systems Review of Systems: All systems reviewed & are unremarkable except as noted in HPI and below Constitutional: Constitutional: Denies chills and Denies fever(s) Eyes: Eyes: Denies change in vision ENT: Denies hearing loss, Denies neck pain and Denies sore throat Cardiovascular: Cardiovascular: Denies chest pain and Denies dyspnea Respiratory: Respiratory: Denies cough, Denies dyspnea and Denies wheezing Gastrointestinal: Gastrointestinal: Reports as per HPI Genitourinary: Genitourinary: Denies hematuria, Denies dysuria and Reports other ( Dark urine) Musculoskeletal: Musculoskeletal: Denies arthralgias, Denies joint swelling and Denies neck pain Allergic/Immunologic: Allergic/Immunologic: Denies wheezing [facility] Past Medical History Medical History GERD (gastroesophageal reflux disease) Kidney stones WPW (Kszch-Hdrgtzalq-Lpmji syndrome) Surgical History Surgical History H/O cardiac radiofrequency ablation H/O dilation and curettage History of lithotripsy Family History Family History Other Breast cancer Diabetes mellitus Malignant neoplasm of prostate Social History Social History Years smoked: 6 Smoking status: Former smoker Tobacco type: cigarettes Smoking end date: 11/15/19 Additional smoking assessment comments: no smoking for 2 yrs Alcohol intake: never Alcohol use details: SPECIAL OCCASIONS Substance use: never Substance use type: does not use Gender identity (if verbalized by the patient): Female Sexual Orientation (if Verbalized by the Patient): Straight or Heterosexual Spiritual care concerns: No Meds Home Medications and Allergies Home Medications Medication Instructions Recorded Confirmed Type cholecalciferol (vitamin D3) 25 25 mcg PO DAILY 07/06/22 08/21/22 History mcg (1,000 unit) capsule multivitamin 1 tablet PO DAILY 07/06/22 08/21/22 History hydrocodone 5 mg-acetaminophen 325 1 tablet PO Q4H PRN pain #10 tabs 08/23/22 Rx mg tablet Allergies Allergy/AdvReac Type Severity Reaction Status Date / Time No Known Allergies Allergy Verified 08/21/22 12:14 Exam Const: General: alert; No acute distress Orientation/consciousness: patient oriented x3 Limitations: no limitations HENMT: Head: normocephalic and atraumatic Ears: hearing grossly normal bilaterally Face/Nose/Sinus: Normal external nose present and Normal nares present Mouth: Yes Normal oral and palatal mucosa present and Yes moist mucous membranes Eyes: General: appearance normal, both eyes and all related structures Conjunctivae: conjunctivae normal Sclera: sclerae normal Pupils: Equal, round and reactive pupils present EOM: EOMs intact bilaterally Neck: Neck: normal vis
[2022-08-24 17:31] VITALS: BP 122/61; PULSE 70; RESP 18; TEMP 37.2; O2SAT 96
[2022-08-24] MEDS: LACTATED RINGERS 1,000 ML 100 ML IV CONT (17:42)
[2022-08-24] MEDS: MORPHINE SULFATE (*CRX) 4 MG/ML INJ IV PUSH ×4 (17:44→23:51)
[2022-08-24 19:55] LABS: Serum Qual hCG Negative
[2022-08-24 19:56] LABS: SPREG INTERNAL CONTROL Positive
[2022-08-24 20:58] VITALS: BP 125/67; PULSE 72; RESP 18; TEMP 36.5; O2SAT 98
[2022-08-24 22:23] LABS: Hematocrit 39.2 % (37.0-47.0); Hemoglobin 13.1 g/dL (12.0-15.0)
[2022-08-25] MEDS: MORPHINE SULFATE (*CRX) 4 MG/ML INJ IV PUSH ×7 (02:08→23:52)
[2022-08-25 02:39] VITALS: BP 120/70; PULSE 68; RESP 16; TEMP 36.6; O2SAT 95
[2022-08-25] MEDS: LACTATED RINGERS 1,000 ML 100 ML IV CONT ×2 (04:05→20:07)
[2022-08-25 05:43] LABS: Hematocrit 37.2 % (37.0-47.0); Hemoglobin 12.4 g/dL (12.0-15.0); Mean Corpuscular HGB Conc 33.3 g/dl (32-36); Mean Corpuscular Hemoglobin 30.1 pg (26-34); Mean Corpuscular Volume 90.3 fl (80-100); Platelet Count Result 266 k/mm3 (150-375); Red Blood Count 4.12 M/mm3 (4.2-5.4); Red Cell Distribution Width 12.9 % (11.5-14.5); White Blood Count 13.6 K/mm3 (4.5-10.0)
[2022-08-25 05:50] LABS: Alanine Aminotransferase 135 U/L (6-35); Albumin Level 3.8 g/dL (3.5-5.1); Alkaline Phosphatase 94 U/L (38-126); Anion Gap 8 mmol/L (8-16); Aspartate Amino Transferase 83 U/L (14-36); Bilirubin Direct 0.1 mg/dL (0-0.3); Blood Urea Nitrogen 15 mg/dL (7-17); Calcium 8.1 mg/dL (8.4-10.2); Carbon Dioxide 26 mmol/L (22-30); Chloride 102 mmol/L (98-107); Estimated CRCL calculation 125 ml/min; Estimated Glomerular Filt Rate > 60; Glucose 104 mg/dL (65-110); Lipase 21 U/L (23-300); Potassium 3.6 mmol/L (3.4-5.0); Sodium 136 mmol/L (137-145)
[2022-08-25 05:53] VITALS: BP 122/61; PULSE 65; RESP 16; TEMP 36.6; O2SAT 96
[2022-08-25 10:39] VITALS: BP 114/53; PULSE 62; RESP 16; TEMP 36.6; O2SAT 96
--- NOTE | 2022-08-25 10:52 | PM.PNGS ---
Progress Note: A&P Assessment and Plan (1) Elevated liver enzymes: Code(s): R74.8 - Abnormal levels of other serum enzymes Status: Acute Assessment and Plan: LFTs still elevated with a total bilirubin of 3.0 this morning. HIDA scan showed bile leak. Will consult GI for possible ERCP. (2) Postoperative bile leak: Code(s): K91.89 - Other postprocedural complications and disorders of digestive system; K83.8 - Other specified diseases of biliary tract Status: Acute Assessment and Plan: Continue IV Zosyn Consult GI Continue IV analgesics for pain control (3) Symptomatic cholelithiasis: Code(s): K80.20 - Calculus of gallbladder without cholecystitis without obstruction Status: Acute Assessment and Plan: S/p laparoscopic cholecystectomy on 08/21/2022. Plan I have discussed the patient's case and plan of care with Dr. Moe. Subjective Subjective Date/Time Seen: 08/25/22 10:00 Post Op day: 4 (Laparoscopic cholecystectomy) Patient reports: no new complaints, tolerating liquids well, voiding w/o difficulty and afebrile Interval history: Patient seen and examined. Reports still having right upper quadrant abdominal pain, that is controlled with the IV morphine. Denies any nausea or vomiting. No new complaints overnight. Review of Systems Review of Systems: All systems reviewed & are unremarkable except as noted in HPI and below Exam Const: General: alert; No acute distress Orientation/consciousness: patient oriented x3 GI: Inspection: non-distended and incision (Incisions dry and intact) GI Palp: Yes Soft to palpation, Yes Tenderness to palpation present (GI) (Right upper quadrant), No Guarding due to palpation present (GI) and No Rebound tenderness present Auscultation: normal bowel sounds Objective Data Vital Signs Vital Signs: Vital Signs - 24 hr 08/24/22 17:31 08/24/22 20:58 08/24/22 20:00 Temperature 99.0 F 97.7 F Pulse Rate 70 72 Respiratory Rate 18 18 Blood Pressure 122/61 125/67 Pulse Oximetry 96 98 Oxygen Delivery Room Air 08/25/22 05:53 08/25/22 02:39 08/25/22 10:39 Temperature 97.8 F 97.9 F 97.9 F Pulse Rate 65 68 62 Respiratory Rate 16 16 16 Blood Pressure 122/61 120/70 114/53 L Pulse Oximetry 96 95 96 Oxygen Delivery Intake/Output Intake/Output: Intake & Output 08/22/22 08/23/22 08/24/22 08/25/22 23:59 23:59 23:59 23:59 Intake Total 1050 Balance 1050 Meds/Results Medications: Active Medications Generic Name Dose Route Start Last Admin Trade Name Freq PRN Reason Stop Dose Admin Lactated Ringer's 1,000 mls @ 100 mls/hr 08/24/22 16:55 08/25/22 04:05 Lr - Lactated Ringers Iv IV CONT 100 mls/hr .Q10H MEHNAZ Administration Acetaminophen 1,000 mg in 100 mls @ 400 mls/hr 08/24/22 16:54 Ofirmev 1,000 Mg Ivpb IVPB 08/25/22 16:53 Q6H PRN Pain Rated 1-3 Piperacillin/Tazobactam/Dextrose 3.375 gm in 50 mls @ 100 mls/hr 08/25/22 15:00 Zosyn 3.375 Gm/D5w 50ml Pm IVPB Q6H MEHNAZ Morphine Sulfate 2 mg 08/24/22 16:54 Morphine Sulfate (*Crx) 2 Mg/Ml Inj IV PUSH Q2H PRN Pain Rated 4-6 Morphine Sulfate 4 mg 08/24/22 16:54 08/25/22 09:01 Morphine Sulfate (*Crx) 4 Mg/Ml Inj IV PUSH 4 mg Q2H PRN Administration Pain Rated 7-10 Ondansetron HCl 4 mg 08/24/22 16:54 Ondansetron Inj 4 Mg/2 Ml Vial IV PUSH Q4H PRN Nausea And Vomiting Radiology Results: ITS Impressions Abdomen/Pelvis CT 08/24/22 21:39 IMPRESSION: 1. Small-moderate abdominopelvic fluid, slightly greater volume than expected for normal postsurgical change. Hemorrhage or bile leak are not excluded. Consider careful observation for clinical signs of volume loss and evaluation of serial H&H values. 2. Gastritis and duodenitis. Urgent results reported telephonically to the patient's nurse Blanca Carter by Dr. Walker at 9:47 PM on 08/24/2022. Hepatobi
[2022-08-25] MEDS: MORPHINE SULFATE (*CRX) 2 MG/ML INJ IV PUSH ×2 (11:36→20:07)
--- NOTE | 2022-08-25 12:38 | WPDGICN ---
Assessment and Plan Assessment and plan (1) Postoperative bile leak: Code(s): K91.89 - Other postprocedural complications and disorders of digestive system; K83.8 - Other specified diseases of biliary tract Status: Acute Assessment and Plan: will proceed with ercp tomorrow and stent placement, this was explained in very detail with patient. Discuss potential complications like pancreatitis she never had egd npo after midnight (2) RUQ pain: Code(s): R10.11 - Right upper quadrant pain Status: Acute Assessment and Plan: pain control (3) Elevated liver enzymes: Code(s): R74.8 - Abnormal levels of other serum enzymes Status: Acute Assessment and Plan: from bile leak monitor (4) Left ureteral stone: Code(s): N20.1 - Calculus of ureter Status: Acute (5) Leukocytosis: Code(s): D72.829 - Elevated white blood cell count, unspecified Status: Acute GI Consult Note Consult date/time: 08/25/22 12:38 Reason for consult: ruq pain, bile leak post cholecystectomy HPI: Asha Terry is a 37 year old female who underwent laparoscopic cholecystectomy on 08/21/2022 and eventually went home. She started having more pain after surgery in ruq then also noted dark urine, pain worsened and she was admitted for further evaluation. she had high white blood count as well as elevated liver enzymes with a total bilirubin of 3.9. HIDA scan confirmed diagnosis of bile leak. Review of Systems Review of Systems: All systems reviewed & are unremarkable except as noted in HPI and below Constitutional: Constitutional: Denies chills and Denies fever(s) Eyes: Eyes: Denies change in vision ENT: Denies hearing loss, Denies neck pain and Denies sore throat Cardiovascular: Cardiovascular: Denies chest pain and Denies dyspnea Respiratory: Respiratory: Denies cough, Denies dyspnea and Denies wheezing Gastrointestinal: Gastrointestinal: Reports as per HPI Genitourinary: Genitourinary: Denies hematuria, Denies dysuria and Reports other ( Dark urine) Musculoskeletal: Musculoskeletal: Denies arthralgias, Denies joint swelling and Denies neck pain Allergic/Immunologic: Allergic/Immunologic: Denies wheezing [facility] Past Medical History Medical History (Updated 08/25/22 @ 12:41 by Blu Jones MD) GERD (gastroesophageal reflux disease) Kidney stones Leukocytosis RUQ pain WPW (Jihvh-Tkbphsrui-Qbnkw syndrome) Surgical History Surgical History H/O cardiac radiofrequency ablation H/O dilation and curettage History of lithotripsy Family History Family History Other Breast cancer Diabetes mellitus Malignant neoplasm of prostate Social History Social History Years smoked: 6 Smoking status: Never smoker Tobacco type: cigarettes Smoking end date: 11/15/19 Additional smoking assessment comments: no smoking for 2 yrs Alcohol intake: never Alcohol use details: SPECIAL OCCASIONS Substance use: never Substance use type: marijuana Other substance usage details: Occasional marijuana use. Gender identity (if verbalized by the patient): Female Sexual Orientation (if Verbalized by the Patient): Straight or Heterosexual Spiritual care concerns: No Meds Home Medications and Allergies Home Medications Medication Instructions Recorded Confirmed Type cholecalciferol (vitamin D3) 25 25 mcg PO DAILY 07/06/22 08/24/22 History mcg (1,000 unit) capsule multivitamin 1 tablet PO DAILY 07/06/22 08/24/22 History hydrocodone 5 mg-acetaminophen 325 1 tablet PO Q4H PRN pain #10 tabs 08/23/22 08/24/22 Rx mg tablet Allergies Allergy/AdvReac Type Severity Reaction Status Date / Time No Known Allergies Allergy Verified 08/21/22 12:14 Vital Signs Starla
[2022-08-25 14:39] VITALS: BP 120/68; PULSE 64; RESP 16; TEMP 37.2; O2SAT 95
[2022-08-25] MEDS: HYDROcodone/acetaminophen (*CRX) 5-325 MG TABLET 1 TAB PO ×2 (18:19→22:13)
[2022-08-25 18:39] VITALS: BP 128/66; PULSE 66; RESP 16; TEMP 36.9; O2SAT 96
[2022-08-25 22:00] VITALS: BP 136/79; PULSE 76; RESP 14; TEMP 36.4; O2SAT 98
[2022-08-26] VITALS (12 sets, daily range): BP systolic 107–129; BP diastolic 52–63; PULSE 61–81; RESP 16–22; TEMP 36.4–37.5; O2SAT 95–100
[2022-08-26] MEDS: HYDROcodone/acetaminophen (*CRX) 5-325 MG TABLET 1 TAB PO ×2 (01:50→19:29)
[2022-08-26] MEDS: MORPHINE SULFATE (*CRX) 2 MG/ML INJ IV PUSH ×2 (08:50→20:35)
[2022-08-26] MEDS: LACTATED RINGERS 1,000 ML 150 ML IV CONT (10:55)
--- NOTE | 2022-08-26 11:11 | PM.PNGS ---
Progress Note: A&P Assessment and Plan (1) Postoperative bile leak: Code(s): K91.89 - Other postprocedural complications and disorders of digestive system; K83.8 - Other specified diseases of biliary tract Status: Acute Assessment and Plan: GI planning for ERCP today Continue IV Zosyn (2) Elevated liver enzymes: Code(s): R74.8 - Abnormal levels of other serum enzymes Status: Acute Assessment and Plan: Related to the bile leak. ERCP today. Repeat labs tomorrow. (3) Symptomatic cholelithiasis: Code(s): K80.20 - Calculus of gallbladder without cholecystitis without obstruction Status: Acute Assessment and Plan: S/p laparoscopic cholecystectomy on 08/21/2022. Plan I have discussed the patient's case and plan of care with Dr. Moe. Subjective Subjective Date/Time Seen: 08/26/22 09:41 Post Op day: 5 (lap kera) Patient reports: still having pain (RUQ), voiding w/o difficulty, flatus and afebrile Interval history: Still having the same amount of right upper quadrant abdominal pain as yesterday. This is being controlled with IV morphine. Plans for ERCP this morning. No new complaints overnight. Review of Systems Review of Systems: All systems reviewed & are unremarkable except as noted in HPI and below Exam Const: General: alert; No acute distress Orientation/consciousness: patient oriented x3 GI: Inspection: non-distended and incision (Incisions dry and intact) GI Palp: Yes Soft to palpation, Yes Tenderness to palpation present (GI) (RUQ) and No Guarding due to palpation present (GI) Auscultation: normal bowel sounds Extrem: General: normal to inspection, no calf tenderness bilaterally and no edema Objective Data Vital Signs Vital Signs: Vital Signs - 24 hr 08/25/22 14:39 08/25/22 18:39 08/25/22 20:30 Temperature 98.9 F 98.5 F Pulse Rate 64 66 Respiratory Rate 16 16 Blood Pressure 120/68 128/66 Pulse Oximetry 95 96 Oxygen Delivery Room Air 08/26/22 05:44 08/25/22 22:00 08/26/22 10:53 Temperature 98.3 F 97.6 F 98.0 F Pulse Rate 65 76 81 Respiratory Rate 16 14 20 Blood Pressure 117/61 136/79 122/63 Pulse Oximetry 98 98 98 Oxygen Delivery Room Air 08/26/22 08:00 Temperature Pulse Rate Respiratory Rate Blood Pressure Pulse Oximetry Oxygen Delivery Room Air Intake/Output Intake/Output: Intake & Output 08/23/22 08/24/22 08/25/22 08/26/22 23:59 23:59 23:59 23:59 Intake Total 2860 500 Output Total 900 Balance 1960 500 Meds/Results Medications: Active Medications Generic Name Dose Route Start Last Admin Trade Name Freq PRN Reason Stop Dose Admin Hydrocodone Bitart/Acetaminophen 1 tab 08/25/22 16:21 08/26/22 01:50 Hydrocodone/Acetaminophen (*Crx) 5-325 Mg Tablet PO 1 tab Q4H PRN Administration Pain Rated 4-6 Lactated Ringer's 1,000 mls @ 100 mls/hr 08/24/22 16:55 08/25/22 20:07 Lr - Lactated Ringers Iv IV CONT 100 mls/hr .Q10H MEHNAZ Administration Piperacillin/Tazobactam/Dextrose 3.375 gm in 50 mls @ 100 mls/hr 08/25/22 15:00 08/26/22 09:18 Zosyn 3.375 Gm/D5w 50ml Pm IVPB Infused Q6H MEHNAZ Infusion Lactated Ringer's 1,000 mls @ 150 mls/hr 08/26/22 10:55 08/26/22 10:55 Lr - Lactated Ringers Iv IV CONT 150 mls/hr .Q6H40M MEHNAZ Administration Morphine Sulfate 2 mg 08/24/22 16:54 08/26/22 08:50 Morphine Sulfate (*Crx) 2 Mg/Ml Inj IV PUSH 2 mg Q2H PRN Administration Pain Rated 4-6 Morphine Sulfate 4 mg 08/24/22 16:54 08/25/22 23:52 Morphine Sulfate (*Crx) 4 Mg/Ml Inj IV PUSH 4 mg Q2H PRN Administration Pain Rated 7-10 Ondansetron HCl 4 mg 08/24/22 16:54 Ondansetron Inj 4 Mg/2 Ml Vial IV PUSH Q4H PRN Nausea And Vomiting Radiology Results: ITS Impressions Abdomen/Pelvis CT 08/24/22 21:39 IMPRESSION: 1. Small-moderate abdominopelvic fluid, slightly greater volume than expected for normal pos
--- NOTE | 2022-08-26 11:27 | P.PNAN_ITS ---
Anes - Initial Pre Proc Eval Procedure: Operation Date: 08/26/22 11:30 Proposed Procedures p Endoscopic Retro Cholangiopancreatogram - Blu Jones MD Date/Time: 08/26/22 11:27 Surgeon: Nitish Moe DO Pre Op Diagnosis: Elevated Liver Enzymes Patient Data Age: 37 Gender: F Height: 1.7 m Weight: 87.5 kg Last Vital Signs Temp 98.0 F 08/26/22 10:53 Pulse 81 08/26/22 10:53 Resp 20 08/26/22 10:53 BP 122/63 08/26/22 10:53 Pulse Ox 98 08/26/22 10:53 O2 Del Method Room Air 08/26/22 10:53 Allergies Allergy/AdvReac Type Severity Reaction Status Date / Time No Known Allergies Allergy Verified 08/26/22 10:51 Home Medications Medication Instructions Recorded Confirmed Type cholecalciferol (vitamin D3) 25 25 mcg PO DAILY 07/06/22 08/24/22 History mcg (1,000 unit) capsule multivitamin 1 tablet PO DAILY 07/06/22 08/24/22 History hydrocodone 5 mg-acetaminophen 325 1 tablet PO Q4H PRN pain #10 tabs 08/23/22 08/24/22 Rx mg tablet Patient hx anesthesia problems: none Family hx anesthesia problems: none Results Review: All pre-operative results and documents have been reviewed as part of the pre- operative evaluation. [facility] Past Medical History Medical History (Updated 08/25/22 @ 12:41 by Blu Jones MD) GERD (gastroesophageal reflux disease) Kidney stones Leukocytosis RUQ pain WPW (Kpjrk-Kdopapvya-Zjjul syndrome) Surgical History Surgical History H/O cardiac radiofrequency ablation H/O dilation and curettage History of lithotripsy Family History Family History Other Breast cancer Diabetes mellitus Malignant neoplasm of prostate Social History Social History Years smoked: 6 Smoking status: Never smoker Tobacco type: cigarettes Smoking end date: 11/15/19 Additional smoking assessment comments: no smoking for 2 yrs Alcohol intake: never Alcohol use details: SPECIAL OCCASIONS Substance use: never Substance use type: marijuana Other substance usage details: Occasional marijuana use. Gender identity (if verbalized by the patient): Female Sexual Orientation (if Verbalized by the Patient): Straight or Heterosexual Spiritual care concerns: No Anes - Eval Final PreProcedure Day of Procedure 08/26/22 11:27 Patient weight: obese Heart: regular rate and rhythm Lungs: clear to auscultation Airway: Mallampati scale class II Neurological: alert and oriented Last oral intake: >/= 8 hours ASA classification: III Emergent: no Anesthetic plan: proceed Anesthesia type and monitoring: general ETT and standard monitoring Results Review: All pre-operative results and documents have been reviewed as part of the pre- operative evaluation. Informed Consent: The patient's anesthetic plan and its attendant risks and benefits were discussed with the patient/family/POA. Questions were solicited and answers provided to the satisfaction of the patient/family/POA.
[2022-08-26] MEDS: INDOMETHACIN 50 MG SUPP.RECT RECTAL (11:55)
[2022-08-26 16:02] LABS: EDCOVIDSCREEN Negative (Negative)
[2022-08-26] MEDS: LACTATED RINGERS 1,000 ML 100 ML IV CONT (17:16)
[2022-08-27] MEDS: MORPHINE SULFATE (*CRX) 4 MG/ML INJ IV PUSH ×4 (00:13→09:24)
[2022-08-27 02:00] VITALS: BP 116/63; PULSE 57; RESP 20; TEMP 37; O2SAT 98
[2022-08-27] MEDS: HYDROcodone/acetaminophen (*CRX) 5-325 MG TABLET 1 TAB PO ×3 (02:07→10:35)
[2022-08-27 05:19] VITALS: BP 126/55; PULSE 62; RESP 16; TEMP 36.9; O2SAT 95
[2022-08-27] MEDS: LACTATED RINGERS 1,000 ML 100 ML IV CONT (06:13)
[2022-08-27 06:15] LABS: Hematocrit 35.3 % (37.0-47.0); Hemoglobin 11.8 g/dL (12.0-15.0); Mean Corpuscular HGB Conc 33.4 g/dl (32-36); Mean Corpuscular Hemoglobin 30.4 pg (26-34); Platelet Count Result 310 k/mm3 (150-375); Red Blood Count 3.88 M/mm3 (4.2-5.4); Red Cell Distribution Width 12.8 % (11.5-14.5); White Blood Count 13.5 K/mm3 (4.5-10.0)
[2022-08-27 06:36] LABS: Alanine Aminotransferase 92 U/L (6-35); Albumin Level 3.4 g/dL (3.5-5.1); Alkaline Phosphatase 123 U/L (38-126); Anion Gap 7 mmol/L (8-16); Aspartate Amino Transferase 50 U/L (14-36); Bilirubin,Total 2.2 mg/dL (0.2-1.3); Blood Urea Nitrogen 15 mg/dL (7-17); Carbon Dioxide 28 mmol/L (22-30); Chloride 103 mmol/L (98-107); Estimated CRCL calculation 109 ml/min; Estimated Glomerular Filt Rate > 60; Glucose 101 mg/dL (65-110); Potassium 3.5 mmol/L (3.4-5.0); Sodium 138 mmol/L (137-145)
--- NOTE | 2022-08-27 08:05 | WPDANESPN ---
Anes - Prog Note Post-Op Date/Time: 08/27/22 08:05 Vital Signs: Last Vital Signs Temp 36.9 C 08/27/22 05:19 Pulse 62 08/27/22 05:19 Resp 16 08/27/22 05:19 BP 126/55 L 08/27/22 05:19 Pulse Ox 95 08/27/22 05:19 O2 Del Method Room Air 08/26/22 20:30 O2 Flow Rate 2 08/26/22 14:23 Pain Score (VAS): 0 I/O: Intake & Output 08/26/22 08/27/22 08/27/22 23:59 07:59 15:59 Intake Total 220 1200 Balance 220 1200 Laboratory Tests 08/27/22 05:54 08/27/22 05:52 08/26/22 08/27/22 08/27/22 15:43 05:52 05:54 WBC 13.5 H RBC 3.88 L Hgb 11.8 L Hct 35.3 L MCV 91.0 MCH 30.4 MCHC 33.4 RDW 12.8 Plt Count 310 MPV 11.0 H Sodium 138 Potassium 3.5 Chloride 103 Carbon Dioxide 28 Anion Gap 7 L BUN 15 Creatinine 0.70 Estim Creat Clear Calc 109 Estimated GFR > 60 Glucose 101 Calcium 8.0 L Total Bilirubin 2.2 H AST 50 H ALT 92 H Alkaline Phosphatase 123 Total Protein 6.0 L Albumin 3.4 L SARS-CoV-2 IgG/IgM Ag?Rapid Negative Patient Feedback: Patient satisfied with anesthetic care.
[2022-08-27 10:30] VITALS: BP 116/55; PULSE 61; RESP 14; TEMP 36.7; O2SAT 98
--- NOTE | 2022-08-27 11:55 | WPDGIPROGNO ---
Progress Note: A&P Assessment and Plan (1) Postoperative bile leak: Code(s): K91.89 - Other postprocedural complications and disorders of digestive system; K83.8 - Other specified diseases of biliary tract Status: Acute Assessment and Plan: I was unable to complete ercp yesterday, could not cannulate ampulla despite multiple attempts patient will be transferred to [facility] today for ercp with stent placement (2) Elevated liver enzymes: Code(s): R74.8 - Abnormal levels of other serum enzymes Status: Acute Assessment and Plan: from bile leak (3) RUQ pain: Code(s): R10.11 - Right upper quadrant pain Status: Acute Assessment and Plan: pain control (4) Leukocytosis: Code(s): D72.829 - Elevated white blood cell count, unspecified Status: Acute Subjective Date/time seen: 08/27/22 11:55 Interval history: yesterday unable to cannulate ampulla despite multiple attempts and changing patient position. She still has similar pain, no changes. Review of Systems Review of Systems: All systems reviewed & are unremarkable except as noted in HPI and below Exam Const: General: alert; No acute distress Orientation/consciousness: patient oriented x3 Limitations: no limitations HENMT: Head: normocephalic and atraumatic Ears: hearing grossly normal bilaterally Face/Nose/Sinus: Normal external nose present and Normal nares present Mouth: Yes Normal oral and palatal mucosa present and Yes moist mucous membranes Eyes: General: appearance normal, both eyes and all related structures Conjunctivae: conjunctivae normal Neck: Neck: normal visual inspection, full ROM, no lymphadenopathy and supple Chest: Chest palpation & inspection: normal inspection of the chest Resp: Effort & Inspection: normal respiratory effort and able to speak in complete sentences Auscultation: clear to auscultation bilaterally Cardio: Jugular venous distension: no JVD Rate: regular rate Rhythm: regular rhythm GI: Inspection: normal to inspection GI Palp: Yes abdominal tenderness, Yes Soft to palpation, Yes Tenderness to palpation present (GI) ( right upper quadrant), No Guarding due to palpation present (GI) and No Rebound tenderness present Auscultation: normal bowel sounds : General: Yes no CVA tenderness Back/Spine/Pelvis: Back: no CVA tenderness Skin: General skin exam: normal color and dry skin Neuro: General: patient oriented x3, moves all extremities, no focal motor deficits and CN's II-XI intact bilaterally Speech: normal speech Extrem: General: normal to inspection Objective Data Vital Signs Vital Signs: Vital Signs - 24 hr 08/26/22 13:43 08/26/22 13:53 08/26/22 14:03 Temperature 99.0 F 98.6 F Pulse Rate 74 68 65 Respiratory Rate 22 H 19 18 Blood Pressure 109/54 L 107/53 L 112/55 L Pulse Oximetry 100 100 100 Oxygen Delivery Simple Face Mask Simple Face Mask Simple Face Mask Oxygen Flow Rate 15 8 8 08/26/22 14:13 08/26/22 14:23 08/26/22 14:33 Temperature 98.8 F Pulse Rate 67 63 62 Respiratory Rate 21 H 21 H 18 Blood Pressure 113/53 L 113/56 L 118/63 Pulse Oximetry 98 98 95 Oxygen Delivery Nasal Cannula Nasal Cannula Room Air Oxygen Flow Rate 2 2 08/26/22 14:43 08/26/22 15:36 08/26/22 18:22 Temperature 97.6 F 97.5 F L Pulse Rate 61 62 63 Respiratory Rate 22 H 20 16 Blood Pressure 125/52 L 117/57 L 129/52 L Pulse Oximetry 95 95 97 Oxygen Delivery Room Air Oxygen Flow Rate 08/26/22 20:41 08/26/22 20:30 08/27/22 02:00 Temperature 99.5 F 98.6 F Pulse Rate 71 57 L Respiratory Rate 20 20 Blood Pressure 112/62 116/63 Pulse Oximetry 95 98 Oxygen Delivery Room Air Oxygen Flow Rate 08/27/22 05:19 08/27/22 10:30 Temperature 98.4 F 98.0 F Pulse Rate 62 61 Respiratory Rate 16 14 Blood Pressure 126/55 L 116/55 L Pulse Oximetry 95 98 Oxygen Delivery Oxygen Flow Rate Intake/Output Intake/Output: Intake & Output
--- NOTE | 2022-08-27 12:19 | PM.PNGS ---
Progress Note: A&P Assessment and Plan (1) Postoperative bile leak: Code(s): K91.89 - Other postprocedural complications and disorders of digestive system; K83.8 - Other specified diseases of biliary tract Status: Acute Assessment and Plan: ERCP attempted yesterday, and unable to cannulate the ampulla. Now attempting transfer for ERCP. She has been accepted by Dr. Rai at [facility], awaiting bed placement. Continue IV Zosyn Will adjust pain medications to hopefully improve pain control (2) Elevated liver enzymes: Code(s): R74.8 - Abnormal levels of other serum enzymes Status: Acute Assessment and Plan: Related to the bile leak. ERCP unsuccessful yesterday. Working on transfer to another facility for ERCP. Continue to monitor. (3) Symptomatic cholelithiasis: Code(s): K80.20 - Calculus of gallbladder without cholecystitis without obstruction Status: Acute Assessment and Plan: S/p laparoscopic cholecystectomy on 08/21/2022. Plan I have discussed the patient's case and plan of care with Dr. Moe. Subjective Subjective Date/Time Seen: 08/27/22 12:19 Patient reports: tolerating liquids well (full liquids well without any N/V) Interval history: 08/21/22 - laparascopic cholecystectomy 08/26/22 - ERCP, which was unsuccessful Patient awaiting transfer to [facility] for attempted ERCP. Spoke with nursing who was going to call [facility] this morning for an update. Patient is still taking Morphine and [place] for RUQ abd pain. Pain is about the same today as the past few days. She feels the Morphine is only lasting about 30-45 min for pain control. She also did not sleep much at all last night. She was waking up all night with either pain or just difficulty sleeping. She is requesting something for sleep tonight if she is still here. She has tried Ambien in the past and tolerated this well. No other complaints at this time. Review of Systems Review of Systems: All systems reviewed & are unremarkable except as noted in HPI and below Exam Const: General: comfortable and no acute distress Orientation/consciousness: patient oriented x3 GI: Inspection: non-distended and incision (Incisions dry and intact) GI Palp: Yes Soft to palpation, Yes Tenderness to palpation present (GI) (RUQ), No Guarding due to palpation present (GI) and No Rebound tenderness present Auscultation: normal bowel sounds Extrem: General: no calf tenderness bilaterally and no edema Objective Data Vital Signs Vital Signs: Vital Signs - 24 hr 08/26/22 13:43 08/26/22 13:53 08/26/22 14:03 Temperature 99.0 F 98.6 F Pulse Rate 74 68 65 Respiratory Rate 22 H 19 18 Blood Pressure 109/54 L 107/53 L 112/55 L Pulse Oximetry 100 100 100 Oxygen Delivery Simple Face Mask Simple Face Mask Simple Face Mask Oxygen Flow Rate 15 8 8 08/26/22 14:13 08/26/22 14:23 08/26/22 14:33 Temperature 98.8 F Pulse Rate 67 63 62 Respiratory Rate 21 H 21 H 18 Blood Pressure 113/53 L 113/56 L 118/63 Pulse Oximetry 98 98 95 Oxygen Delivery Nasal Cannula Nasal Cannula Room Air Oxygen Flow Rate 2 2 08/26/22 14:43 08/26/22 15:36 08/26/22 18:22 Temperature 97.6 F 97.5 F L Pulse Rate 61 62 63 Respiratory Rate 22 H 20 16 Blood Pressure 125/52 L 117/57 L 129/52 L Pulse Oximetry 95 95 97 Oxygen Delivery Room Air Oxygen Flow Rate 08/26/22 20:41 08/26/22 20:30 08/27/22 02:00 Temperature 99.5 F 98.6 F Pulse Rate 71 57 L Respiratory Rate 20 20 Blood Pressure 112/62 116/63 Pulse Oximetry 95 98 Oxygen Delivery Room Air Oxygen Flow Rate 08/27/22 05:19 08/27/22 10:30 Temperature 98.4 F 98.0 F Pulse Rate 62 61 Respiratory Rate 16 14 Blood Pressure 126/55 L 116/55 L Pulse Oximetry 95 98 Oxygen Delivery Oxygen Flow Rate Intake/Output Intake/Output: Intake & Output 08/24/22 08/25/22 08/26/22 08/27/22 23:59 23:59 23:59 23:59 Intake Total 2860 1920 1490 Output Total 900 300 Balance
[2022-08-27] MEDS: HYDROcodone/acetaminophen (*CRX) 10-325 MG TABLET 1 TAB PO (13:50)
--- NOTE | 2022-08-27 16:21 | PM.TDS ---
Transfer Discharge Sum: Prov Provider Date of admission: 08/25/22 11:01 Primary care physician: Satya Cortes MD Admitting clinician: Nitish Moe DO Attending physician on admission: Nitish Moe Consults: 08/25/22 Consult to Physician Routine Comment: Reports show Dr Monterroso did consult/th Consulting Provider: Blu Jones call centre supervisor/MD group to consult: Dr. Jones Reason for consultation: elevated liver enzymes, s/p lap kera Has provider been notified: Yes Attending physician on discharge: Nitish Moe Discharging clinician: Leatha Tierney Anticipated date of transfer: 08/27/22 Receiving physician/facility: [place] Dr. Fredi Cullen DS: Admitting Diagnosis Discharge Date 08/27/22 Admitting Diagnosis S/p laparoscopic cholecystectomy for symptomatic cholelithiasis Elevated LFTs DS: Discharge Diagnosis Discharge Diagnosis (1) S/P laparoscopic cholecystectomy: Code(s): Z90.49 - Acquired absence of other specified parts of digestive tract Status: Chronic (2) Elevated liver enzymes: Code(s): R74.8 - Abnormal levels of other serum enzymes Status: Acute Assessment and Plan: Related of the postop bile leak (3) Symptomatic cholelithiasis: Code(s): K80.20 - Calculus of gallbladder without cholecystitis without obstruction Status: Acute Assessment and Plan: S/p laparoscopic cholecystectomy (4) Postoperative bile leak: Code(s): K91.89 - Other postprocedural complications and disorders of digestive system; K83.8 - Other specified diseases of biliary tract Status: Acute Transfer Discharge Sum: Med Medications Active and Home Medications: Home Medications cholecalciferol (vitamin D3) 25 mcg (1,000 unit) capsule 25 mcg PO DAILY 07/06/22 [History Confirmed 08/24/22] multivitamin 1 tablet PO DAILY 07/06/22 [History Confirmed 08/24/22] hydrocodone 5 mg-acetaminophen 325 mg tablet 1 tablet PO Q4H PRN pain #10 tabs 08/23/22 [Rx Confirmed 08/24/22] Transfer Discharge Sum: Hosp Hospital Course Hospital course: Asha Terry is a 37 year old female who underwent a laparoscopic cholecystectomy as an outpatient on 08/21/[address] Moe for symptomatic cholelithiasis. She initially did well after the surgery. She was having worsening pain on postop day 1, but this improved slightly with ambulation. She then called on postop day 2 and was experiencing very dark urine. She felt like she was drinking plenty of water and staying hydrated but her urine was still very dark. No jaundice or yellow eyes. Her pain was slightly improved. She then called the office again on postop day 3 and was still complaining of very dark urine. Labs were ordered and she had evidence of a high white blood cell count and elevated liver enzymes with a total bilirubin of 3.9. She was then directly admitted on 08/24/2022 for further workup to assess for common bile duct obstruction or bile leak. CT scan of the abdomen and pelvis showed a small to moderate amount of abdominopelvic fluid, more volume than typically expected after surgery. Gastritis and duodenitis. Then a HIDA scan was ordered and showed a bile leak. GI was consulted for possible ERCP. They attempted an ERCP on 08/26/2022 and after multiple attempts were unable to cannulate the ampulla, and therefore was unsuccessful. We then decided to transfer the patient to another facility where an ERCP could be attempted. Time Spent with Patient Time attestation: Total time spent providing and/or coordinating transfer services: Total time spent: Less than 30 minutes DS: Data Data Completed and Pending Labs on day of discharge: Labs from last 24 hours 08/27/22 08/27/22 05:54 05:52 WBC 13.5 H RBC 3.88 L Hgb 11.8 L Hct 35.3 L MCV 91.0 MCH 30.4 MCHC 33.4 RDW 12.8 Plt Count 310 MPV 11.0 H Sodium 138 Potassium 3.5 Chloride 1
== END 2022-08-27 14:10 | disposition short-term general hospital (02) | DRG 395 ==
PROVIDERS: Internal Medicine Gastroenterology; Admitting Provider Surgery; PCP Family Medicine; Visit Provider Nurse Practitioner Family
PROC: 0DJ08ZZ Inspection of Upper Intestinal Tract, Via Natural or Artificial Opening Endoscopic (ICD-10-PCS; CPT 43260; principal; 2022-08-26 11:30)
DX: K91.89 Other postprocedural complications and disorders of digestive system (principal); K83.8 Other specified diseases of biliary tract; K29.80 Duodenitis without bleeding; K21.9 Gastro-esophageal reflux disease without esophagitis; I45.6 Pre-excitation syndrome; Z20.822 Contact with and (suspected) exposure to COVID-19; Z87.442 Personal history of urinary calculi; Z87.891 Personal history of nicotine dependence; Z90.49 Acquired absence of other specified parts of digestive tract
CPT/HCPCS: 36415; 74177; 74329; 78226; 80048; 80053; 80076; 83690; 84703; 85014; 85018; 85025; 85027; 87426; 96361; 96365; 96374; 96375; 96376; A9270; A9537; C9803; G0378; G0379; J0131; J0330; J1100; J2270; J2405; J2543; J2704; J3010; J7120; Q9967

== ENCOUNTER 2022-09-15 15:35 | Outpatient (CLI) | payer OTHER, SELFPAY ==
[2022-09-15 16:17] LABS: Prothrombin Time 12.9 Seconds (11.1-14.7)
[2022-09-15 16:18] LABS: Partial Thromboplastin Time 28.9 SECONDS (22.3-36.8)
== END 2022-09-15 15:36 | disposition home or self-care (01) ==
LOC: ANHSURGERY 15:36
PROVIDERS: PCP Family Medicine; Visit Provider Urology
DX: N20.0 Calculus of kidney (principal); Z01.818 Encounter for other preprocedural examination
CPT/HCPCS: 36415; 85610; 85730; 87086

== ENCOUNTER 2022-09-18 01:46 | Day surgery (SDC) | payer OTHER, SELFPAY ==
[2022-08-19 14:21] VITALS: BMI 29.7
--- NOTE | 2022-08-19 14:27 | PC.NURSE ---
Report to the Outpatient Waiting Room, entrance under the green pavilion located off [facility], at time 8:30 on date 08/28/22. OR Time: 10:30. Time changes happen often and if your time is changed the preop area will call you the afternoon before. - You and your visitor will be asked to self-screen and do not enter if you have any COVID symptoms. - Only one visitor and NO children visitors are allowed at this time. - The patient visitor is requested to leave or wait in car when not with patient due to restrictions. - A mask is required within the hospital. Patients may have clear liquids (water, carbonated beverages, clear teas, apple juice) until 3 hours prior to surgery (7:30) with a maximum of 20 ounces. - No food from midnight until time of surgery Take the following medications with a SIP of water the morning of surgery: NONE Medications to discontinue per physician: VITAMINS Date to take last dose: 08/24/22 Please no make-up, nail english, hairspray, perfume, deodorant, or body powder the day of surgery. No jewelry (including any body piercings) or valuables the day of surgery, leave them at home. Please take a shower or bath the night before, or the morning of, surgery with an antibacterial soap. Wear comfortable, loose fitting clothing. - Jewelry must be removed prior to entering the operating room. Rings and piercings that are not removed may be cut off. - The hospital will not accept responsibility for valuables. - Please leave all valuables, including medications, at home the day of surgery. If you are going home after surgery, a licensed oil truck driver must drive you home. - NO public transportation without another adult. - We recommend that an adult stay with you for 24 hours following discharge. - We also recommend that you do not drive, make important decision, drink alcoholic beverages, or take any drugs that were not prescribed by your health care provider for at least 24 hours after your discharge time. Follow any additional instructions given to you from your surgeon. If you or anyone in your household have experienced Covid symptoms in the past week, please notify your surgeon or the nurse liaison at the phone number below for possible testing. Telephone instructions given to PT - SCAR MUNROE and asked if any additional questions and then verbalized understanding. Patient advised to call surgeon office or pre surgery nurse liaison [phone] if any additional questions.
--- NOTE | 2022-09-15 10:52 | PC.NURSE ---
Addendum entered by Jessa Adams RN 09/15/22 10:53: MASK IS OPTIONAL Original Note: Report to the Outpatient Waiting Room, entrance under the green pavilion located off [facility], at time 6:00 on date 09/18/22. Planned Procedure Time: 7:30. Time changes happen often and if your time is changed the preop area will call you the afternoon before. - You and your visitor will be asked to self-screen and do not enter if you have any COVID symptoms. - We encourage only one visitor and NO visitors under age 16 are allowed at this time. Your visitor will receive communication by the phone number that is given day of service. - The patient visitor is requested to social distance or may leave the building when not with patient due to restrictions. - A mask is required within the hospital. Patients may have clear liquids (water, carbonated beverages, clear teas, apple juice) until 3 hours prior to surgery (4:30) with a maximum of 20 ounces. - No food from midnight until time of surgery Take the following medications with a SIP of water the morning of surgery: NONE Medications to discontinue per physician: VITAMINS Date to take last dose: NO MORE UNTIL AFTER SURGERY Please no make-up, nail luxembourgish, hairspray, perfume, deodorant, or body powder the day of surgery. No jewelry (including any body piercings) or valuables the day of surgery, leave them at home. Please take a shower or bath the night before, or the morning of, surgery with an antibacterial soap. Wear comfortable, loose fitting clothing. - Jewelry must be removed prior to entering the operating room. Rings and piercings that are not removed may be cut off. - The hospital will not accept responsibility for valuables. - Please leave all valuables, including medications, at home the day of surgery. If you are going home after surgery, a licensed class a regional drivers must drive you home. - NO public transportation without another adult. - We recommend that an adult stay with you for 24 hours following discharge. - We also recommend that you do not drive, make important decision, drink alcoholic beverages, or take any drugs that were not prescribed by your health care provider for at least 24 hours after your discharge time. Follow any additional instructions given to you from your surgeon. If you or anyone in your household have experienced Covid symptoms in the past week, please notify your surgeon or the nurse liaison at the phone number below for possible testing. Telephone instructions given to YOANDY MUNROE and asked if any additional questions and then verbalized understanding. Patient advised to call surgeon office or pre surgery nurse liaison [phone] if any additional questions.
--- NOTE | 2022-09-15 16:30 | PC.NURSE ---
Updates documented. Pt states no changes in medications since initial interview. New pre-op instructions reviewed with pt. Pt denies further questions at this time.
--- NOTE | 2022-09-17 07:55 | P.HP_ITS ---
History of Present Illness History of Present Illness Consent: Risks, benefits, and alternatives have been discussed and questions answered. Patient agrees to proceed with procedure. Chief complaint: Lt Renal Stone Narrative: Asha Terry is a 37 year old female who is status post left ESWL in April 2022. Following that procedure she has a residual 5 mm fragment in her left kidney. In the interval she has undergone a cholecystectomy and now presents for left ESWL. She is aware of the risk including, but not limited to, injury to the kidney with perinephric hematoma, residual fragments and need for additional procedures. Review of Systems Cardiovascular: Cardiovascular: Denies chest pain, Denies lightheadedness, Denies palpitations and Denies dyspnea Respiratory: Respiratory: Denies dyspnea Gastrointestinal: Gastrointestinal: Denies diarrhea, Denies nausea and Denies vomiting Genitourinary: Genitourinary: Denies hematuria and Denies dysuria Endocrine: Endocrine: Denies palpitations PMFSH Past Medical History Medical History (Updated 08/25/22 @ 12:41 by Blu Jones MD) GERD (gastroesophageal reflux disease) Kidney stones Leukocytosis RUQ pain WPW (Pbjnj-Qvzskkkos-Obnss syndrome) Surgical History Surgical History (Updated 08/27/22 @ 16:24 by CHAVA Diaz) H/O cardiac radiofrequency ablation H/O dilation and curettage History of lithotripsy S/P laparoscopic cholecystectomy Family History Family History Other Breast cancer Diabetes mellitus Malignant neoplasm of prostate Social History Social History Years smoked: 6 Smoking status: Never smoker Tobacco type: cigarettes Smoking end date: 11/15/19 Additional smoking assessment comments: no smoking for 2 yrs Alcohol intake: never Alcohol use details: SPECIAL OCCASIONS Substance use: never Substance use type: marijuana Other substance usage details: Occasional marijuana use. Gender identity (if verbalized by the patient): Female Sexual Orientation (if Verbalized by the Patient): Straight or Heterosexual Spiritual care concerns: No Meds Home Medications and Allergies Home Medications Medication Instructions Recorded Confirmed Type cholecalciferol (vitamin D3) 25 25 mcg PO DAILY 07/06/22 09/15/22 History mcg (1,000 unit) capsule multivitamin 1 tablet PO DAILY 07/06/22 09/15/22 History Allergies Allergy/AdvReac Type Severity Reaction Status Date / Time No Known Allergies Allergy Verified 09/15/22 10:48 Exam Const: General: no acute distress Resp: Effort & Inspection: normal respiratory effort GI: Inspection: non-distended GI Palp: No abdominal tenderness and No Guarding due to palpation present (GI) Auscultation: normal bowel sounds Assessment and Plan Assessment and plan (1) Left renal stone: Code(s): N20.0 - Calculus of kidney Status: Acute Assessment and Plan: * Left ESWL
[2022-09-18] VITALS (9 sets, daily range): BP systolic 108–127; BP diastolic 51–72; PULSE 56–104; RESP 14–24; TEMP 36.2–36.7; O2SAT 96–100
--- NOTE | ~2022-09-18 | XR_ITS ---
EXAMINATION: XR abdomen/kub 1V DATE: 09/18/2022 06:29 INDICATION: Kidney stone. TECHNIQUE: A supine view of the abdomen on 2 radiographs was obtained. COMPARISON: CT abdomen and pelvis 08/24/2022 FINDINGS: There are no dilated loops of bowel. There is a biliary stent in expected position. Surgica l clips in the right upper quadrant are likely from cholecystectomy. There is an intrauterine device in expected position. There is a 4 mm stone in left kidney. IMPRESSION: 1. 4 mm stone in left kidney. Reviewed, dictated and finalized at location A.
[2022-09-18] MEDS: LACTATED RINGERS 1,000 ML 30 ML IV CONT ×2 (06:38→08:12)
--- NOTE | 2022-09-18 07:02 | WPDHPUPDATE1 ---
History and Physical Update Update Date/Time: 09/18/22 07:02 History and Physical has been reviewed, including an updated exam of the patient. There are NO changes in the patient's condition. Risks, benefits, and alternatives have been discussed and questions answered. Patient agrees to proceed with procedure.
--- NOTE | 2022-09-18 07:15 | P.PNAN_ITS ---
Anes - Initial Pre Proc Eval Procedure: Operation Date: 09/18/22 07:30 Proposed Procedures p Left Renal Extracorporeal Shock Wave Lithotripsy - William Gonzalez MD Date/Time: 09/18/22 07:15 Surgeon: William Gonzalez MD Pre Op Diagnosis: Lt Renal Stone Patient Data Age: 37 Gender: F Height: 1.7 m Weight: 83.75 kg Last Vital Signs Temp 36.2 C L 09/18/22 06:36 Pulse 88 09/18/22 06:36 Resp 18 09/18/22 06:36 BP 113/64 09/18/22 06:36 Pulse Ox 98 09/18/22 06:36 O2 Del Method Room Air 09/18/22 06:36 Allergies Allergy/AdvReac Type Severity Reaction Status Date / Time No Known Allergies Allergy Verified 09/18/22 06:26 Home Medications Medication Instructions Recorded Confirmed Type cholecalciferol (vitamin D3) 25 25 mcg PO DAILY 07/06/22 09/18/22 History mcg (1,000 unit) capsule multivitamin 1 tablet PO DAILY 07/06/22 09/18/22 History Patient hx anesthesia problems: none Family hx anesthesia problems: none Results Review: All pre-operative results and documents have been reviewed as part of the pre- operative evaluation. FORMERLY [facility], [facility] Past Medical History Medical History GERD (gastroesophageal reflux disease) Kidney stones Leukocytosis RUQ pain WPW (Sgmge-Arapqkkxa-Mwhja syndrome) Surgical History Surgical History H/O cardiac radiofrequency ablation H/O dilation and curettage History of lithotripsy S/P laparoscopic cholecystectomy Family History Family History Other Breast cancer Diabetes mellitus Malignant neoplasm of prostate Social History Social History Years smoked: 5 Smoking status: Never smoker Tobacco type: cigarettes Smoking end date: 11/15/19 Additional smoking assessment comments: no smoking for 2 yrs Alcohol intake: never Alcohol use details: SPECIAL OCCASIONS Substance use: current Substance use type: marijuana Other substance usage details: Occasional marijuana use. Living arrangements: with family Gender identity (if verbalized by the patient): Female Sexual Orientation (if Verbalized by the Patient): Straight or Heterosexual Spiritual care concerns: No Anes - Eval Final PreProcedure Day of Procedure 09/18/22 07:15 Patient weight: overweight Heart: regular rate and rhythm Lungs: clear to auscultation Airway: Mallampati scale class II Neurological: alert and oriented Last oral intake: >/= 8 hours ASA classification: II Emergent: no Anesthetic plan: proceed Anesthesia type and monitoring: general LMA and standard monitoring Results Review: All pre-operative results and documents have been reviewed as part of the pre- operative evaluation. Informed Consent: The patient's anesthetic plan and its attendant risks and benefits were discussed with the patient/family/POA. Questions were solicited and answers provided to the satisfaction of the patient/family/POA.
[2022-09-18] MEDS: ceFAZolin 2 GM/D5W 50 ML 2 GM/50 ML BAG IVPB (07:25)
--- NOTE | 2022-09-18 08:04 | W.PM.PROC2 ---
Procedure Note - Detailed Date of Procedure 09/18/22 Pre-op Diagnosis Lt Renal Stone Post-op Diagnosis Same Procedure Performed Left ESWL Surgeon William Gonzalez MD Anesthesia General Description of Procedure The patient was brought to the operative suite where she was placed in the supine position on the Dornier lithotripsy table. The focal point of the lithotripter was placed at a 4-5mm left upper pole calculus. A total of 2500 shocks were delivered at a power setting of 4. There appeared to be good fragmentation of the stone. The patient tolerated the procedure well and was taken to the recovery room in good condition. Drains No Packing No Pathology None sent Complications No immediate complications Condition Stable
[2022-09-18] MEDS: fentaNYL CITRATE INJ (*CRX) 100 MCG/2 ML VIAL 25 MCG IV PUSH ×2 (08:33→08:37)
--- NOTE | 2022-09-18 08:47 | SUR.PHASEI ---
0843: Simple mask removed.
--- NOTE | 2022-09-18 09:05 | SUR.PHASEI ---
Patient received 1L of LR in pre-op. 500mL intraoperatively.
[2022-09-18] MEDS: oxyCODONE HCL (*CRX) 5 MG TAB IR PO (09:31)
== END 2022-09-18 10:00 | disposition home or self-care (01) ==
PROVIDERS: PCP Family Medicine; Visit Provider Urology
PROC: (CPT 50590; principal; 2022-09-18 07:30)
DX: N20.0 Calculus of kidney (principal); K21.9 Gastro-esophageal reflux disease without esophagitis; I45.6 Pre-excitation syndrome; Z87.891 Personal history of nicotine dependence
CPT/HCPCS: 50590; 36415; 74018; 85610; 85730; 87086; A9270; J0690; J1100; J2250; J2405; J2704; J3010; J7120

== ENCOUNTER 2022-10-07 08:54 | Outpatient (CLI) | payer OTHER, SELFPAY ==
--- NOTE | ~2022-10-07 | XR_ITS ---
EXAM: XR abdomen/kub 1V DATE: 10/07/2022 09:14 HISTORY: LEFT URETERAL STONE 2 WEEK FU FROM LITHROTRIPSY . COMPARISON: 08/18/2022. FINDINGS: Clear lung bases. Interval biliary stent removal. Cholecystectomy clips. IUD. Normal bowel gas pattern. No organomegaly. No abnormal abdominal calcification. Previously described left uretera l stone no longer visualized. Regional bones and soft tissues normal for age. IMPRESSION: Likely interval passage of the left ureteral stone. Reviewed, dictated and finalized at location K. RDS MANAGEMENT ANALYST
== END 2022-10-07 08:55 | disposition home or self-care (01) ==
PROVIDERS: PCP Family Medicine; Visit Provider Urology
DX: N20.1 Calculus of ureter (principal)
CPT/HCPCS: 74018

== ENCOUNTER 2022-10-27 13:45 | Emergency (ER) | payer OTHER, SELFPAY ==
--- NOTE | ~2022-10-27 | CT_ITS ---
EXAMINATION: CT abdomen pelvis w con DATE: 10/27/2022 17:21 INDICATION: Vomiting TECHNIQUE: Computed tomography (CT) of the abdomen and pelvis was performed with 100 mL Omnipaque-350 intravenous contrast. Automated exposure control and iterative reconstruction technique were employe d. The dose-length product was 463.21 mGy-cm. COMPARISON: 08/24/2022. FINDINGS: Lower thorax: Unremarkable Liver: Normal. Biliary/Gallbladder: Gallbladder is absent. No bile duct dilation. Pancreas: No mass or duct dilation. Spleen: Normal. Adrenals:No mass. Kidneys: Bilateral hypodensities that are too small to characterize but most likely represent cysts. No suspicious mass, stone, or hydronephrosis. GI tract: No small or large bowel dilation. Normal appendix. Mesentery/Peritoneum: No ascites, mass, or free air. Retroperitoneum: No mass. Pelvis: IUD, in good position. The remaining pelvic organs are within normal limits. Soft Tissues: Small uncomplicated fat-containing umbilical hernia. Bones: No acute osseous finding. IMPRESSION: Esophagitis/gastritis. Otherwise, no acute abdominopelvic process detected. Reviewed, dictated and finalized at location K. TH AND WELLNESS DIRECTOR
[2022-10-27 13:47] VITALS: BP 128/75; PULSE 88; RESP 16; TEMP 37.2; O2SAT 98
[2022-10-27 14:20] LABS: Basophils Percent Auto 0.1 % (0.2-1.2); Hematocrit 43.2 % (37.0-47.0); Hemoglobin 14.8 g/dL (12.0-15.0); Immature Granulocyte Absolute 0.05 K/mm3 (0.00-0.031); Immature Granulocyte Percent A 0.3 % (0-0.5); Lymphocytes Percent Auto 3.4 % (18.3-44.2); Mean Corpuscular HGB Conc 34.3 g/dl (32-36); Mean Corpuscular Hemoglobin 30.1 pg (26-34); Mean Corpuscular Volume 87.8 fl (80-100); Mean Platelet Volume 11.1 fl (7.4-10.4); Monocytes Absolute Auto 0.4 K/mm3 (0.1-0.6); Monocytes Percent Auto 2.8 % (2.6-8.5); Neutrophils Absolute Auto 13.8 K/mm3 (1.3-6.7); Neutrophils Percent Auto 93.4 % (45.5-73.1); Platelet Count Result 290 k/mm3 (150-375); Red Blood Count 4.92 M/mm3 (4.2-5.4); Red Cell Distribution Width 12.3 % (11.5-14.5); White Blood Count 14.8 K/mm3 (4.5-10.0)
[2022-10-27 14:29] LABS: Alanine Aminotransferase 18 U/L (6-35); Albumin Level 4.7 g/dL (3.5-5.1); Alkaline Phosphatase 98 U/L (38-126); Anion Gap 11 mmol/L (8-16); Aspartate Amino Transferase 21 U/L (14-36); Bilirubin,Total 1.4 mg/dL (0.2-1.3); Blood Urea Nitrogen 14 mg/dL (7-17); Calcium 8.8 mg/dL (8.4-10.2); Carbon Dioxide 23 mmol/L (22-30); Chloride 106 mmol/L (98-107); Estimated CRCL calculation 123 ml/min; Estimated Glomerular Filt Rate > 60; Glucose 118 mg/dL (65-110); Lipase 28 U/L (23-300); Potassium 3.6 mmol/L (3.4-5.0); Sodium 140 mmol/L (137-145)
[2022-10-27 16:44] VITALS: BP 117/70; PULSE 108; RESP 18; O2SAT 97
--- NOTE | 2022-10-27 17:03 | ED.ABDPAIN ---
HPI - Abdominal Pain General Chief Complaint: Abdominal Pain Stated Complaint: vomiting Time Seen by Provider: 10/27/22 16:24 History of Present Illness HPI narrative: Patient is a 37-year-old female who presents to the ER with vomiting. Ongoing for 2 days. Patient recently had issues with gallbladder and had 2 ERCPs and a biliary stent placed that since been removed. She has no pain in her abdomen but anytime she eats she begins to vomit. No fevers or chills or sweats. Denies chest pain or chest pressure. Related Data Home Medications Medication Instructions Recorded Confirmed cholecalciferol (vitamin D3) 25 25 mcg PO DAILY 07/06/22 09/18/22 mcg (1,000 unit) capsule multivitamin 1 tablet PO DAILY 07/06/22 09/18/22 Allergies Allergy/AdvReac Type Severity Reaction Status Date / Time No Known Allergies Allergy Verified 09/18/22 06:26 Review of Systems Review of Systems: All systems reviewed & are unremarkable except as noted in HPI and below Constitutional: Constitutional: Denies chills, Denies fatigue and Denies fever(s) ENT: Denies nasal congestion and Denies sore throat Cardiovascular: Cardiovascular: Denies chest pain Gastrointestinal: Gastrointestinal: Denies abdominal pain, Denies diarrhea, Reports nausea and Reports vomiting Genitourinary: Genitourinary: Denies nocturia, Denies dysuria and Denies flank pain Musculoskeletal: Musculoskeletal: Reports back pain PMFSH Past Medical History Medical History GERD (gastroesophageal reflux disease) Kidney stones Leukocytosis RUQ pain WPW (Xxmkx-Sefzmejdp-Pmyja syndrome) Surgical History Surgical History H/O cardiac radiofrequency ablation H/O dilation and curettage History of lithotripsy S/P laparoscopic cholecystectomy Family History Family History Other Breast cancer Diabetes mellitus Malignant neoplasm of prostate Social History Social History Years smoked: 5 Smoking status: Never smoker Tobacco type: cigarettes Smoking end date: 11/15/19 Additional smoking assessment comments: no smoking for 2 yrs Alcohol intake: never Alcohol use details: SPECIAL OCCASIONS Substance use: current Substance use type: marijuana Other substance usage details: Occasional marijuana use. Gender identity (if verbalized by the patient): Female Sexual Orientation (if Verbalized by the Patient): Straight or Heterosexual Spiritual care concerns: No Exam Narrative: GENERAL: Well-appearing, well-nourished, and in no acute distress. HEAD: Normocephalic, atraumatic. ENT: Mucous membranes moist. NECK: Supple. CHEST: Clear to auscultation. No respiratory distress. HEART: Regular rate and rhythm. Normal peripheral pulses. ABDOMEN: Soft, nontender, nondistended. EXTREMITIES: Normal range of motion. No edema. SKIN: Warm, dry, no rash. NEURO: Alert and oriented x3. PSYCH: Normal mood and affect. Course Course Emergency Course: Patient resting comfortably. Informed of results. Discharge home with PPI and antiemetics. Vital Signs Vital signs: Vital Signs Temperature 98.9 F 10/27/22 13:47 Pulse Rate 88 10/27/22 13:47 Respiratory Rate 16 10/27/22 13:47 Blood Pressure 128/75 10/27/22 13:47 Pulse Oximetry 98 10/27/22 13:47 Oxygen Delivery Room Air 10/27/22 13:47 Temperature 98.9 F 10/27/22 13:47 Pulse Rate 85 10/27/22 19:04 Respiratory Rate 18 10/27/22 19:04 Blood Pressure 115/72 10/27/22 19:04 Pulse Oximetry 98 10/27/22 19:04 Oxygen Delivery Room Air 10/27/22 13:47 MDM - Abdominal Pain Lab Data 10/27/22 14:05 10/27/22 14:05 Labs: Lab Results 10/27/22 10/27/22 10/27/22 Range/Units 14:05 14:05 16:47 WBC 14.8 H
[2022-10-27 17:05] LABS: Add Urine Microscopic? YES; Appearance Urine Slightly Cloudy (Clear); Bilirubin Urine Negative (Negative); Blood Urine Negative (Negative); Color Urine Yellow (Yellow); Glucose Urine UA Negative (Negative); Ketones Urine 1+ mg/dL (Negative); Leukocyte Esterase Ur Negative LEU/UL (Negative); Nitrate Urine Negative (Negative); Protein Urine Trace mg/dL (Negative); pH Urine 7.5 (5.0-9.0)
[2022-10-27] MEDS: SODIUM CHLORIDE 0.9% IV 1,000 ML 999 ML IV CONT (17:06)
[2022-10-27] MEDS: ONDANSETRON INJ 4 MG/2 ML VIAL IV PUSH (17:07)
[2022-10-27 17:14] LABS: Bacteria Urine Trace /hpf; Mucus Urine Heavy /lpf; Squamous Epithelial Cell Urine Occasional /hpf (Few); WBC Urine 0-3 /hpf
[2022-10-27 18:23] VITALS: BP 110/58; PULSE 93; RESP 18; O2SAT 97
[2022-10-27] MEDS: PANTOPRAZOLE SODIUM IV 40 MG VIAL IV PUSH (18:23)
[2022-10-27 19:04] VITALS: BP 115/72; PULSE 85; RESP 18; O2SAT 98
== END 2022-10-27 19:13 | disposition home or self-care (01) ==
PROVIDERS: Emergency Medicine; Emergency Provider Emergency Medicine; PCP Family Medicine
DX: K20.90 Esophagitis, unspecified without bleeding (principal); K29.70 Gastritis, unspecified, without bleeding; K21.9 Gastro-esophageal reflux disease without esophagitis; I45.6 Pre-excitation syndrome
CPT/HCPCS: 36415; 74177; 80053; 81001; 81025; 83690; 85025; 96361; 96374; 96375; 99284; C9113; J2405; J7030; Q9967

== ENCOUNTER 2023-01-07 13:46 | Outpatient (CLI) | payer OTHER, SELFPAY ==
--- NOTE | ~2023-01-07 | MMUS_ITS ---
EXAMINATION: MM diagnostic dorian BI w vince, US breast BI complete HISTORY: Family history of breast cancer; mother reported that he had cancer at age 26 TECHNIQUE: ML, MLO and CC 3-D tomosynthesis images of both breasts were performed and synthetic 2-D i mages were generated. CAD analysis was submitted and interpreted. High resolution complete bilateral breast ultrasound examination including all 4 quadrants and subareolar areas was performed. COMPARISON: None BREAST PARENCHYMAL COMPOSITION: The breasts are heterogeneously dense, which may obscure small masses . FINDINGS: MAMMOGRAPHIC FINDINGS: Possible 1.2 cm mass in upper central left breast (MLO Tomosynthesis image 50/75). No suspicious mass or architectural distortion, malignant calcification, skin thickening or retractio n of either breast is detected otherwise. The heterogeneously dense stroma may obscure masses in either breast. Bilateral complete breast ultra sound examination was performed, particularly given the family history. ULTRASOUND: Right breast: No suspicious mass or shadowing, cyst or other significant finding is noted. Left breast: 12:00 4 cm from nipple: Approximately 5.3 x 11 mm mm circumscribed mass with tail-like projection is suggested. Ultrasound-guided biopsy is recommended. IMPRESSION: 1. Left breast 12:00 mass 4 cm from nipple 2. Ultrasound-guided biopsy is recommended of left breast 12:00 lesion BI-RADS category 4, suspicious findings. Dr. Thomas telephoned the report and left breast ultrasound guided biopsy recommendation on December 2316 hours to Nurse voicemail at [phone]. Reviewed, dictated and finalized at location A. ING CARE ATTENDANT IMPRESSION: 1. Left breast 12:00 mass 4 cm from nipple 2. Ultrasound-guided biopsy is recommended of left breast 12:00 lesion BI-RADS category 4, suspicious findings. Dr. Thomas telephoned the report and left breast ultrasound guided biopsy recomme ndation on January 07, 2000 2316 hours to Nurse voicemail at [phone]. IMPRESSION: 1. Left breast 12:00 mass 4 cm from nipple 2. Ultrasound-guided biopsy is recommended of left breast 12:00 lesion BI-RADS category 4, suspicious findings. Dr. Thomas telephoned the report and left breast ultrasound guided biopsy recomme ndation on January 07, 2000 2316 hours to Nurse voicemail at [phone].
== END 2023-01-07 13:47 | disposition home or self-care (01) ==
PROVIDERS: PCP Family Medicine; Visit Provider Obstetrics & Gynecology
DX: Z80.3 Family history of malignant neoplasm of breast (principal); R92.8 Other abnormal and inconclusive findings on diagnostic imaging of breast
CPT/HCPCS: 76641; 77062; 77066; G0279

== ENCOUNTER 2023-01-14 09:43 | Outpatient (CLI) | payer OTHER, SELFPAY ==
--- NOTE | ~2023-01-14 | MMUS_ITS ---
EXAMINATION: US GUIDED NEEDLE BIOPSY DATE: 01/14/2023 11:14 RECYCLING SPECIALIST INDICATION: Left breast 12:00 approximately 5.3 x 11 mm mass TECHNIQUE AND FINDINGS: The risks and potential benefits of the procedure were discussed with the patient, and written inform ed consent was obtained. Timeout procedure was performed. After sterile preparation of the left breas t, 1% lidocaine was utilized for local anesthesia. A 14G spring-loaded biopsy gun needle was advanced to the edge of the region of interest from a later al approach utilizing sonographic guidance. A total of 5 tissue core samples were obtained through t he lesion. An Inrad tissue marker clip was then placed at the biopsy site. Hemostasis was achieved. A sterile bandage was applied. The patient tolerated procedure well and there was no evidence of immediate complication. The patien t was given verbal instructions prior to departing from the department. A two view mammogram was perf ormed to document tissue marker clip placement. The tissue samples were submitted to surgical patholo gy for histologic analysis. IMPRESSION: 1. Successful ultrasound guided biopsy of 12:00 left breast mass with biopsy marker placement. Elieser engle refer to pathology report for histologic analysis. Reviewed, dictated and finalized at Location A. Reviewed, dictated and finalized at location A. CLING SPECIALIST IMPRESSION: 1. Successful ultrasound guided biopsy of 12:00 left breast mass with biopsy m arker placement. Please refer to pathology report for histologic analysis.
== END 2023-01-14 09:44 | disposition home or self-care (01) ==
LOC: ANHIMG 09:44
PROVIDERS: PCP Family Medicine; Visit Provider Obstetrics & Gynecology
DX: R92.8 Other abnormal and inconclusive findings on diagnostic imaging of breast (principal)
CPT/HCPCS: 19083; 88305; A4648

== ENCOUNTER 2023-04-05 10:42 | Outpatient (CLI) | payer OTHER, SELFPAY ==
--- NOTE | ~2023-04-05 | XR_ITS ---
XR abdomen/kub 1V 04/05/2023 11:11 INDICATION: Left-sided ureteral stone. TECHNIQUE: KUB COMPARISON: Comparison to multiple prior studies sequentially, with oldest reviewed study dated 05/11. FINDINGS: Bowel gas pattern is normal. There is no evidence of free air, mass, organomegaly, ascites or obstruction. No abnormal calculi are seen. The bones appear intact.. There is an IUD in the pel vis. There are cholecystectomy clips. IMPRESSION: 1: No acute abdominal abnormality identified. Reviewed, dictated and finalized at location B.
== END 2023-04-05 10:43 | disposition home or self-care (01) ==
PROVIDERS: PCP Family Medicine; Visit Provider Urology
DX: N20.0 Calculus of kidney (principal)
CPT/HCPCS: 74018

== ENCOUNTER 2023-06-18 02:26 | Day surgery (SDC) | payer OTHER, SELFPAY ==
[2023-06-14 10:29] VITALS: BMI 29.7
--- NOTE | 2023-06-14 10:34 | PC.NURSE ---
Report to the Outpatient Waiting Room, entrance under the green pavilion located off [facility], at time 1130 on date 06/18/23. Planned Procedure Time: 1330. Time changes happen often and if your time is changed the preop area will call you the afternoon before. - You and your visitor will be asked to self-screen and do not enter if you have any COVID symptoms. - A mask is optional within the hospital at this time. Patients may have clear liquids (water, carbonated beverages, clear teas, apple juice) until 3 hours prior to surgery with a maximum of 20 ounces. - No food from midnight until time of surgery Take the following medications with a SIP of water the morning of surgery: NONE DO NOT STOP ANY OF YOUR OTHER PRESCRIPTION MEDICATIONS PRIOR TO SURGERY ?EXCEPT THE FOLLOWING Medications to discontinue per physician: VITAMINS/SUPPLEMENTS Date to take last dose: 06/14/23 Please no make-up, nail singaporean, hairspray, perfume, deodorant, or body powder the day of surgery. No jewelry (including any body piercings) or valuables the day of surgery, leave them at home. Please take a shower or bath the night before, or the morning of, surgery with an antibacterial soap. Wear comfortable, loose fitting clothing. - Jewelry must be removed prior to entering the operating room. Rings and piercings that are not removed may be cut off. - The hospital will not accept responsibility for valuables. - Please leave all valuables, including medications, at home the day of surgery. If you are going home after surgery, a licensed uke driver must drive you home. - NO public transportation without another adult if you receive anesthesia. - We recommend that an adult stay with you for 24 hours following discharge. - We also recommend that you do not drive, make important decision, drink alcoholic beverages, or take any drugs that were not prescribed by your health care provider for at least 24 hours after your discharge time. Follow any additional instructions given to you from your surgeon. If you or anyone in your household have experienced Covid symptoms in the past week, please notify your surgeon or the nurse liaison at the phone number below for possible testing. Telephone instructions given to PT - SCAR MUNROE and asked if any additional questions and then verbalized understanding. Patient advised to call surgeon office or pre surgery nurse liaison [phone] if any additional questions.
--- NOTE | 2023-06-15 16:29 | P.HP_ITS ---
H&P: HPI History of Present Illness Date/Time: 06/15/23 16:29 Chief Complaint: bleeding and desirous of permanent sterilization Narrative: this is a 38-year-old multiparous patient who desires permanent sterilization with heavy bleeding she has an IUD in and 1 that removed she will undergo laparoscopic tubal ligation and hysteroscopy/dilatation curettage / and the nerve and ablation. [facility] Past Medical History Medical History GERD (gastroesophageal reflux disease) Kidney stones Leukocytosis RUQ pain WPW (Ukkcj-Ygvmwhkml-Ifuit syndrome) Surgical History Surgical History H/O cardiac radiofrequency ablation H/O dilation and curettage History of lithotripsy S/P laparoscopic cholecystectomy Family History Family History Other Breast cancer Diabetes mellitus Malignant neoplasm of prostate Social History Social History Years smoked: 6 Smoking status: Never smoker Tobacco type: cigarettes Smoking end date: 11/15/19 Additional smoking assessment comments: no smoking for 2 yrs Alcohol intake: never Alcohol use details: SPECIAL OCCASIONS Substance use: never Substance use type: does not use Other substance usage details: Occasional marijuana use. Living arrangements: with family Gender identity (if verbalized by the patient): Female Sexual Orientation (if Verbalized by the Patient): Straight or Heterosexual Spiritual care concerns: No Meds Home Medications and Allergies Home Medications Medication Instructions Recorded Confirmed Type multivitamin 1 tablet PO DAILY 07/06/22 06/14/23 History cyanocobalamin (vitamin B-12) 1,000 mcg PO DAILY 06/14/23 06/14/23 History 1,000 mcg tablet ferrous sulfate 325 mg (65 mg 325 mg PO DAILY 06/14/23 06/14/23 History iron) tablet (FeroSul) Allergies Allergy/AdvReac Type Severity Reaction Status Date / Time No Known Allergies Allergy Verified 06/14/23 10:27 Exam Const: General: cooperative, healthy appearing and comfortable Nutritional Appearance: average body habitus Orientation/consciousness: oriented to person, oriented to place and oriented to time HENMT: Head: normal to inspection Resp: Effort & Inspection: normal respiratory effort Cardio: Rate: regular rate Rhythm: regular rhythm Heart sounds: S1 normal heart sound present and S2 normal heart sound present GI: Inspection: normal to inspection : Speculum Exam - Vagina: normal appearance of the vagina Speculum Exam - Cervix: normal appearance of the cervix Bimanual exam- vagina & uterus: enlarged Bimanual Exam- Adnexa, other: normal adnexae Assessment and Plan Assessment and plan (1) Sterilization: Code(s): Z30.2 - Encounter for sterilization Status: Acute (2) Vaginal bleeding: Code(s): N93.9 - Abnormal uterine and vaginal bleeding, unspecified Status: Acute
[2023-06-18] VITALS (9 sets, daily range): BP systolic 108–122; BP diastolic 54–75; PULSE 48–73; RESP 16–21; TEMP 36.5–36.7; O2SAT 92–100
[2023-06-18] MEDS: LACTATED RINGERS 1,000 ML 30 ML IV CONT ×2 (11:35→13:44)
[2023-06-18] MEDS: KETOROLAC 15 MG/ML VIAL (*BKC) IV PUSH (11:38)
[2023-06-18] MEDS: SCOPOLAMINE 1.5 MG PATCH TRANSDERM (11:39)
[2023-06-18] MEDS: ACETAMINOPHEN 500 MG TABLET 1000 MG PO (11:39)
[2023-06-18 11:55] LABS: Hematocrit 39.6 % (37.0-47.0); Hemoglobin 13.2 g/dL (12.0-15.0)
--- NOTE | 2023-06-18 12:10 | WPDANESEPPF ---
Anes - Initial Pre Proc Eval Procedure: Operation Date: 06/18/23 13:30 Proposed Procedures p Laparoscopic Bilateral Tubal Sterilization with Fallopian Rings - Zach Hanson MD s Hysteroscopy Dilation and Curettage,Removal of Intrauterine Device, Bertha Endometrial Ablation - Zach Hanson MD Date/Time: 06/18/23 12:10 Surgeon: Zach Hanson MD Pre Op Diagnosis: Desire Sterilization, Excessive Bleeding Patient Data Age: 38 Gender: F Height: 1.7 m Weight: 87 kg Last Vital Signs Temp 36.7 C 06/18/23 11:10 Pulse 73 06/18/23 11:10 Resp 16 06/18/23 11:10 BP 112/54 L 06/18/23 11:10 Pulse Ox 99 06/18/23 11:10 O2 Del Method Room Air 06/18/23 11:10 Allergies Allergy/AdvReac Type Severity Reaction Status Date / Time No Known Allergies Allergy Verified 06/18/23 11:14 Home Medications Medication Instructions Recorded Confirmed Type multivitamin 1 tablet PO DAILY 07/06/22 06/14/23 History cyanocobalamin (vitamin B-12) 1,000 mcg PO DAILY 06/14/23 06/14/23 History 1,000 mcg tablet ferrous sulfate 325 mg (65 mg 325 mg PO DAILY 06/14/23 06/14/23 History iron) tablet (FeroSul) hydrocodone 5 mg-acetaminophen 325 1 tablet PO Q4H PRN pain #20 tabs 06/18/23 Rx mg tablet Laboratory Tests 06/18/23 11:29 Hgb 13.2 g/dL (12.0-15.0) Hct 39.6 % (37.0-47.0) Patient hx anesthesia problems: none Family hx anesthesia problems: none Results Review: All pre-operative results and documents have been reviewed as part of the pre-operative evaluation. [facility] Past Medical History Medical History GERD (gastroesophageal reflux disease) Kidney stones Leukocytosis RUQ pain WPW (Kamrl-Uuygbnyuk-Bzwcq syndrome) Surgical History Surgical History H/O cardiac radiofrequency ablation H/O dilation and curettage History of lithotripsy S/P laparoscopic cholecystectomy Family History Family History Other Breast cancer Diabetes mellitus Malignant neoplasm of prostate Social History Social History (Updated 06/18/23 @ 12:11 by Zach Peng MD) Years smoked: 6 Smoking status: Former smoker Tobacco type: cigarettes Smoking end date: 11/15/19 Additional smoking assessment comments: no smoking for 2 yrs Alcohol intake: never Alcohol use details: SPECIAL OCCASIONS Substance use: never Substance use type: does not use Other substance usage details: Occasional marijuana use. Living arrangements: with family Gender identity (if verbalized by the patient): Female Sexual Orientation (if Verbalized by the Patient): Straight or Heterosexual Spiritual care concerns: No Anes - Eval Final PreProcedure Day of Procedure 06/18/23 12:10 Patient weight: obese Heart: regular rate and rhythm Lungs: clear to auscultation Airway: Mallampati scale class II Neurological: alert and oriented Last oral intake: >/= 8 hours ASA classification: III Emergent: no Anesthetic plan: proceed Anesthesia type and monitoring: general GIVS and standard monitoring Results Review: All pre-operative results and documents have been reviewed as part of the pre-operative evaluation. Informed Consent: The patient's anesthetic plan and its attendant risks and benefits were discussed with the patient/family/POA. Questions were solicited and answers provided to the satisfaction of the patient/family/POA.
--- NOTE | 2023-06-18 13:42 | P.OP_ITS ---
Procedure Note - Detailed Date of Procedure 06/18/23 Pre-op Diagnosis Desire Sterilization, Excessive Bleeding Post-op Diagnosis Same Procedure Performed Laparoscopic bilateral tubal ligation with rings/hysteroscopy/ dilatation curettage/Bertha ablation /removal IUD Surgeon Zach Hanson MD Anesthesia General Indications this is a 38 old female who desires permanent sterilization with removal of an IUD and ablation secondary to desires sterilization and excessive bleeding Findings IUD was seen in the propria placed. Normal-appearing uterus ovaries and tubes. On hysteroscopy the uterus sounded to 8cm. Thick irregular endometrial tissue was seen Description of Procedure patient was prepped draped in the normal sterile fashion placed in dorsal lithotomy position excellent general trach anesthesia weighted speculum placed in posterior fornix vagina. Anterior lip of the cervix grasped with a single- tooth tenaculum. The IUD was removed in 1 piece and noted to be normal in nature. The cervix was grasped with a single-tooth tenaculum and the Durham's cannula inserted attached to be used later for uterine manipulation. Bladder was emptied of clear fluid in the weighted speculum was removed. The gloves were changed. A supraumbilical incision made the Veress needle passed in the abdomen. Abdomen filled with CO2 gas to 15mm. 5mm trocar advanced under direct visualization and no injury seen. Patient placed in Trendelenburg a suprapubic incision made the 8mm trocar advanced under direct visualization assuring no injury. The above findings were noted in photo documentation undertaken. The left fallopian tube was grasped and a good knuckle of tube formed. A the right fallopian tube was grasped in a good knuckle of tube seen as well. Blanching of the tubes were noted. Photo documentation undertaken. The the lower site removed. The gas removed from the abdomen. The upper site removed the incisions closed with 4 Monocryl and glue. Attention was then turned to the hysteroscopy. Uterus sounded to 8cm. Serial dilatation with fragmented dilators performed followed by passes the 5mm visualizing hysteroscope using normal saline as visualizing medium. Thick irregular endometrial tissue was seen but no evidence of any abnormalities. The uterus scraped over the entire 360? until good grating sound was heard. The instruments were withdrawn and the Bertha instrum ent placed in the uterus. There is burned 120seconds. The instruments removed this hysteroscope reinserted and excellent burn seen in photo documentation undertaken the instruments were then removed the patient was awakened went to recovery in satisfactory condition. All sponge, needle, instrument counts were correct. There were no immediate complications Estimated Blood Loss 5 Drains No Packing No Pathology Yes Complications No immediate complications Condition Stable Disposition PACU
[2023-06-18] MEDS: fentaNYL CITRATE INJ (*CRX) 100 MCG/2 ML VIAL 25 MCG IV PUSH ×8 (13:55→14:50)
[2023-06-18] MEDS: ONDANSETRON INJ 4 MG/2 ML VIAL IV PUSH (14:12)
[2023-06-18] MEDS: oxyCODONE HCL (*CRX) 5 MG TAB IR PO (14:58)
--- NOTE | 2023-06-18 15:52 | SUR.PHASEII ---
Patient dressed and waiting for medicinal plant picker. Vital signs stable. IV discontinued.
== END 2023-06-18 16:05 | disposition home or self-care (01) ==
PROVIDERS: Anesthesiology; PCP Family Medicine; Visit Provider Obstetrics & Gynecology
PROC: (CPT 58671; principal; 2023-06-18 13:30)
PROC: 0U5B8ZZ Destruction of Endometrium, Via Natural or Artificial Opening Endoscopic (ICD-10-PCS; CPT 58563; 2023-06-18 13:30)
DX: Z30.2 Encounter for sterilization (principal); N93.9 Abnormal uterine and vaginal bleeding, unspecified; Z30.432 Encounter for removal of intrauterine contraceptive device; Z87.891 Personal history of nicotine dependence; F12.90 Cannabis use, unspecified, uncomplicated; E66.9 Obesity, unspecified; Z68.30 Body mass index [BMI] 30.0-30.9, adult
CPT/HCPCS: 58671; 58563; 58301; 36415; 85014; 85018; 88305; A4264; A9270; J1100; J1885; J2250; J2405; J2704; J3010; J7030; J7120